=== PATIENT | female | born 1935 | race Caucasian/White ===

== ENCOUNTER 2016-04-08 12:44 | Outpatient (CLI) | payer MEDICARE, BC, OTHER | END 2016-04-08 12:45 | disposition home or self-care (01) | DX: I48.91 Unspecified atrial fibrillation (principal); Z79.01 Long term (current) use of anticoagulants ==

== ENCOUNTER 2016-04-16 08:00 | Outpatient (CLI) | payer MEDICARE, BC, OTHER | END 2016-04-16 08:01 | disposition home or self-care (01) | DX: R19.5 Other fecal abnormalities (principal) ==

== ENCOUNTER 2016-04-28 15:20 | Outpatient (CLI) | payer MEDICARE, BC, OTHER | END 2016-04-28 15:21 | disposition home or self-care (01) | DX: I10 Essential (primary) hypertension (principal); D50.9 Iron deficiency anemia, unspecified ==

== ENCOUNTER 2016-05-06 13:32 | Outpatient (CLI) | payer MEDICARE, BC, OTHER | END 2016-05-06 13:33 | disposition home or self-care (01) | DX: Z00.8 Encounter for other general examination (principal) ==

== ENCOUNTER 2016-05-07 09:34 | Outpatient (CLI) | payer MEDICARE, BC, OTHER | END 2016-05-07 09:35 | disposition home or self-care (01) | DX: D50.8 Other iron deficiency anemias (principal) ==

== ENCOUNTER 2016-06-04 10:00 | Outpatient (CLI) | payer MEDICARE, BC, OTHER | END 2016-06-04 10:01 | disposition home or self-care (01) | DX: I48.91 Unspecified atrial fibrillation (principal); Z79.01 Long term (current) use of anticoagulants ==

== ENCOUNTER 2016-06-08 10:35 | Outpatient (CLI) | payer MEDICARE, BC, OTHER | END 2016-06-08 10:36 | disposition home or self-care (01) | DX: Z12.31 Encounter for screening mammogram for malignant neoplasm of breast (principal); Z85.3 Personal history of malignant neoplasm of breast; Z90.12 Acquired absence of left breast and nipple ==

== ENCOUNTER 2016-07-01 10:23 | Outpatient (CLI) | payer MEDICARE, BC, OTHER | END 2016-07-01 10:24 | disposition home or self-care (01) | DX: I48.91 Unspecified atrial fibrillation (principal); Z79.01 Long term (current) use of anticoagulants ==

== ENCOUNTER 2016-07-29 14:18 | Outpatient (CLI) | payer MEDICARE, BC, OTHER | END 2016-07-29 23:59 | DX: I48.91 Unspecified atrial fibrillation (principal); Z79.01 Long term (current) use of anticoagulants ==

== ENCOUNTER 2016-08-20 07:26 | Outpatient (CLI) | payer MEDICARE, BC, OTHER ==
[2016-08-20 12:01] LABS: BASOPHILS % (AUTO) 0.8 %; EOSINOPHILS # (AUTO) 0.1 10^3/uL (0.0-0.7); HCT - HEMATOCRIT 41.8 % (37.0-47.0); HGB - HEMOGLOBIN 14.1 g/dL (12.0-16.0); LYMPHOCYTES # (AUTO) 1.7 10^3/uL (1.5-3.5); LYMPHOCYTES % (AUTO) 37.3 %; MEAN CORPUSCULAR HGB CONC 33.7 g/dL (32.0-36.0); MEAN PLATELET VOLUME 12.7 fL (7.9-10.8); MONOCYTES # (AUTO) 0.4 10^3/uL (0.0-1.0); NEUTROPHILS # (AUTO) 2.2 10^3/uL (1.5-6.6); NEUTROPHILS % (AUTO) 49.9 %; NUCLEATED RED BLOOD CELLS AUTO 0.1 /100WBC; RED BLOOD COUNT 4.55 10^6/uL (4.20-5.40); UNCORRECTED WHITE BLOOD COUNT 4.5 x10^3/uL; WHITE BLOOD COUNT 4.5 x10^3/uL (4.8-10.8)
[2016-08-20 12:17] LABS: ALBUMIN/GLOBULIN RATIO 1.4 (1.0-2.2); BUN - BLOOD UREA NITROGEN 20 mg/dL (6-20); CALCIUM 8.8 mg/dL (8.5-10.3); CARBON DIOXIDE - CO2 29 mmol/L (21-32); CHLORIDE 106 mmol/L (101-111); CHOL/HDL RATIO 2.6 (<4.4); CHOLESTEROL 142 mg/dL; CREATININE 0.8 mg/dL (0.4-1.0); GFR - MDRD 69 (>89); GLUCOSE 97 mg/dL (70-100); HDL CHOLESTEROL 54 mg/dL; LDL/HDL RATIO 1.2 (<4.4); POTASSIUM 3.7 mmol/L (3.5-5.0); SODIUM 141 mmol/L (135-145); TOTAL PROTEIN 6.8 g/dL (6.7-8.2); TRIGLYCERIDES 107 mg/dL; VLDL CHOLESTEROL 21 mg/dL
[2016-08-20 12:27] LABS: PLATELET MORPHOLOGY RARE GIANT PLATELETS (NORMAL)
== END 2016-08-20 07:27 | disposition home or self-care (01) ==
LOC: LAB.F 07:26
PROVIDERS: ATTEND Internal Medicine
DX: E78.2 Mixed hyperlipidemia (principal); I48.91 Unspecified atrial fibrillation; Z79.899 Other long term (current) drug therapy
CPT/HCPCS: 36415; 80053; 80061; 84443; 85025

== ENCOUNTER 2016-08-26 13:10 | Outpatient (CLI) | payer MEDICARE, BC, OTHER | END 2016-08-26 13:11 | disposition home or self-care (01) | LOC: LAB.F 13:10 | PROVIDERS: ATTEND Internal Medicine | DX: I48.91 Unspecified atrial fibrillation (principal) | CPT/HCPCS: 85610 ==

== ENCOUNTER 2016-09-24 09:00 | Outpatient (CLI) | payer MEDICARE, BC, OTHER | END 2016-09-24 09:01 | disposition home or self-care (01) | LOC: LAB.R 09:00 | PROVIDERS: ATTEND Internal Medicine | DX: N30.90 Cystitis, unspecified without hematuria (principal) | CPT/HCPCS: 87086 ==

== ENCOUNTER 2016-09-27 13:59 | Outpatient (CLI) | payer MEDICARE, BC, OTHER | END 2016-09-27 14:00 | disposition home or self-care (01) | LOC: LAB.F 13:59 | PROVIDERS: ATTEND Internal Medicine | DX: I48.91 Unspecified atrial fibrillation (principal) | CPT/HCPCS: 85610 ==

== ENCOUNTER 2016-10-25 13:35 | Outpatient (CLI) | payer MEDICARE, BC, OTHER | END 2016-10-25 13:36 | disposition home or self-care (01) | LOC: LAB.F 13:35 | PROVIDERS: ATTEND Internal Medicine | DX: I48.91 Unspecified atrial fibrillation (principal) | CPT/HCPCS: 85610 ==

== ENCOUNTER 2016-11-22 14:17 | Outpatient (CLI) | payer MEDICARE, BC, OTHER | END 2016-11-22 14:18 | disposition home or self-care (01) | LOC: LAB.F 14:17 | PROVIDERS: ATTEND Internal Medicine | DX: I48.91 Unspecified atrial fibrillation (principal) | CPT/HCPCS: 85610 ==

== ENCOUNTER 2016-12-22 13:13 | Outpatient (CLI) | payer MEDICARE, BC, OTHER | END 2016-12-22 13:14 | disposition home or self-care (01) | LOC: LAB.F 13:13 | PROVIDERS: ATTEND Internal Medicine | DX: I48.91 Unspecified atrial fibrillation (principal); Z79.01 Long term (current) use of anticoagulants | CPT/HCPCS: 85610 ==

== ENCOUNTER 2017-01-19 14:15 | Outpatient (CLI) | payer MEDICARE, BC, OTHER | END 2017-01-19 14:16 | disposition home or self-care (01) | LOC: LAB.F 14:15 | PROVIDERS: ATTEND Internal Medicine | DX: I48.91 Unspecified atrial fibrillation (principal); Z79.01 Long term (current) use of anticoagulants | CPT/HCPCS: 85610 ==

== ENCOUNTER 2017-02-16 13:57 | Outpatient (CLI) | payer MEDICARE, BC, OTHER | END 2017-02-16 13:58 | disposition home or self-care (01) | LOC: LAB.F 13:57 | PROVIDERS: ATTEND Internal Medicine | DX: I48.91 Unspecified atrial fibrillation (principal); Z79.01 Long term (current) use of anticoagulants | CPT/HCPCS: 85610 ==

== ENCOUNTER 2017-03-04 13:35 | Outpatient (CLI) | payer MEDICARE, BC, OTHER ==
[2017-03-04 18:54] LABS: BASOPHILS % (AUTO) 0.3 %; EOSINOPHILS % (AUTO) 0.8 %; HCT - HEMATOCRIT 42.9 % (37.0-47.0); HGB - HEMOGLOBIN 14.3 g/dL (12.0-16.0); LYMPHOCYTES # (AUTO) 1.6 10^3/uL (1.5-3.5); LYMPHOCYTES % (AUTO) 28.4 %; MEAN CORPUSCULAR HEMOGLOBIN 31.1 pg (27.0-31.0); MEAN CORPUSCULAR HGB CONC 33.2 g/dL (32.0-36.0); MEAN CORPUSCULAR VOLUME 93.5 fL (81.0-99.0); MONOCYTES # (AUTO) 0.4 10^3/uL (0.0-1.0); MONOCYTES % (AUTO) 6.3 %; NEUTROPHILS # (AUTO) 3.7 10^3/uL (1.5-6.6); NEUTROPHILS % (AUTO) 64.2 %; NUCLEATED RED BLOOD CELLS AUTO 0.1 /100WBC; RED BLOOD COUNT 4.59 10^6/uL (4.20-5.40); RED CELL DISTRIBUTION WIDTH 13.2 % (12.0-15.0); UNCORRECTED WHITE BLOOD COUNT 5.7 x10^3/uL; WHITE BLOOD COUNT 5.7 x10^3/uL (4.8-10.8)
[2017-03-04 19:31] LABS: PLATELET ESTIMATE, MANUAL NORMAL (130-450,000) (NORMAL); PLATELET MORPHOLOGY RARE GIANT PLATELETS (NORMAL)
[2017-03-04 20:27] LABS: ALBUMIN/GLOBULIN RATIO 1.3 (1.0-2.2); BILIRUBIN,TOTAL 0.9 mg/dL (0.2-1.0); CALCIUM 8.6 mg/dL (8.5-10.3); CREATININE 0.8 mg/dL (0.4-1.0); POTASSIUM 4.1 mmol/L (3.5-5.0); TOTAL PROTEIN 7.2 g/dL (6.7-8.2)
== END 2017-03-04 13:36 | disposition home or self-care (01) ==
LOC: LAB.F 13:35
PROVIDERS: ATTEND Internal Medicine
DX: R53.81 Other malaise (principal)
CPT/HCPCS: 36415; 80053; 85025

== ENCOUNTER 2017-03-16 13:59 | Outpatient (CLI) | payer MEDICARE, BC, OTHER | END 2017-03-16 14:00 | disposition home or self-care (01) | LOC: LAB.F 13:59 | PROVIDERS: ATTEND Internal Medicine | DX: I48.91 Unspecified atrial fibrillation (principal); Z79.01 Long term (current) use of anticoagulants | CPT/HCPCS: 85610 ==

== ENCOUNTER 2017-04-20 09:01 | Observation (INO) | payer MEDICARE, BC, OTHER ==
[2017-04-20 09:54] LABS: BASOPHILS # (AUTO) 0.1 10^3/uL (0.0-0.1); BASOPHILS % (AUTO) 0.6 %; EOSINOPHILS # (AUTO) 0.1 10^3/uL (0.0-0.7); EOSINOPHILS % (AUTO) 0.7 %; HGB - HEMOGLOBIN 12.4 g/dL (12.0-16.0); LYMPHOCYTES # (AUTO) 1.4 10^3/uL (1.5-3.5); LYMPHOCYTES % (AUTO) 16.8 %; MEAN CORPUSCULAR HEMOGLOBIN 30.8 pg (27.0-31.0); MEAN CORPUSCULAR HGB CONC 32.6 g/dL (32.0-36.0); MEAN CORPUSCULAR VOLUME 94.6 fL (81.0-99.0); MEAN PLATELET VOLUME 10.4 fL (7.9-10.8); MONOCYTES # (AUTO) 0.5 10^3/uL (0.0-1.0); MONOCYTES % (AUTO) 6.1 %; NEUTROPHILS # (AUTO) 6.3 10^3/uL (1.5-6.6); NEUTROPHILS % (AUTO) 75.8 %; PLT - PLATELET COUNT 258 10^3/uL (130-450); RED BLOOD COUNT 4.03 10^6/uL (4.20-5.40); RED CELL DISTRIBUTION WIDTH 14.2 % (12.0-15.0); WHITE BLOOD COUNT 8.4 x10^3/uL (4.8-10.8)
[2017-04-20 10:09] LABS: PT - PROTHROMBIN TIME 57.8 secs (9.9-12.6)
[2017-04-20 10:10] LABS: INR 5.5 (0.8-1.2)
[2017-04-20 10:11] LABS: ALBUMIN 3.8 g/dL (3.2-5.5); ALBUMIN/GLOBULIN RATIO 1.1 (1.0-2.2); BILIRUBIN,TOTAL 0.5 mg/dL (0.2-1.0); CALCIUM 8.7 mg/dL (8.5-10.3); CREATININE 0.8 mg/dL (0.4-1.0); TOTAL PROTEIN 7.2 g/dL (6.7-8.2)
[2017-04-20 10:16] LABS: BILIRUBIN,URINE NEGATIVE (NEGATIVE); GLUCOSE, URINE (UA) NEGATIVE (NEGATIVE); KETONES,URINE (UA) NEGATIVE (NEGATIVE); LEUKOCYTE ESTERASE, URINE NEGATIVE (NEGATIVE); NITRITE,URINE NEGATIVE (NEGATIVE); OCCULT BLOOD,URINE MODERATE (NEGATIVE); PROTEIN,URINE NEGATIVE (NEGATIVE); UROBILINOGEN,URINE 0.2 (NORMAL) E.U./dL (NORMAL)
[2017-04-20 10:19] LABS: CLARITY,URINE CLEAR (CLEAR)
[2017-04-20] MEDS ORDERED: PROTHROMBIN COMPLEX CONC 500 UNIT VIAL IVP STA (10:24)
[2017-04-20] MEDS ORDERED: PHYTONADIONE 10 MG/ML AMP IVP STA (10:24)
[2017-04-20] MEDS ORDERED: PANTOPRAZOLE 40 MG VIAL IVP STA (10:27)
--- NOTE | 2017-04-20 10:27 | ED Physician Documentation ---
PD HPI GI BLEED - Stated complaint Stated Complaint: FEMALE - Chief complaint Chief Complaint: General - History obtained from History obtained from: Patient, Family - History of Present Illness Timing - onset: How many days ago (3) Timing - duration: Days (3) Timing - details: Gradual onset, Still present, Waxing and waning Associated symptoms: BRBPR, Black/tarry stool. No: Vomiting Contributing factors: Anticoagulated Similar symptoms before: Has not had sx before Recently seen: Not recently seen - Additional information Additional information: 81-year-old female on Coumadin for atrial fibrillation has developed dark tarry stools about 3 days ago and she is subsequently developed bright red blood per rectum at about 2:30 in the morning this morning. She has had stable INR for the past year. She has had an upper respiratory tract infection and has not been on any specific new medications. She feels the URI is now resolved. Review of Systems Constitutional: denies: Fever Eyes: denies: Decreased vision Ears: denies: Ear pain Nose: reports: Rhinorrhea / runny nose, Congestion Throat: denies: Sore throat Cardiac: denies: Chest pain / pressure, Palpitations Respiratory: reports: Cough. denies: Dyspnea GI: reports: Nausea, Bloody / black stool. 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 - Present Medications Home Medications: Ambulatory Orders Medication Instructions Recorded Confirmed Calcium Carbonate [Calcium] 1,200 mg PO DAILY 05/26/13 04/20/17 Cholecalciferol (Vitamin D3) 1,000 unit PO DAILY 05/26/13 04/20/17 [Vitamin D] Clopidogrel [Plavix] 75 mg PO ONCE 05/26/13 04/20/17 LORazepam [Ativan] 0.5 mg PO Q6H PRN 05/26/13 04/20/17 Losartan [Cozaar] 50 mg PO BID 05/26/13 04/20/17 Metoprolol Tartrate 50 mg PO BID 05/26/13 04/20/17 Pantoprazole Sodium [Protonix] 40 mg PO HS 05/26/13 04/20/17 Betaxolol 0.25% Ophth Drops 1 drops OPTH BID 07/05/13 04/20/17 [Betoptic S] Atorvastatin [Lipitor] 10 mg PO DAILY 08/27/15 04/20/17 Furosemide 10 mg PO DAILY 08/27/15 04/20/17 Warfarin [Coumadin] 5 mg PO 1400 08/27/15 04/20/17 Amlodipine Besylate [Norvasc] 2.5 mg PO DAILY 04/20/17 04/20/17 - Allergies Allergies/Adverse Reactions: Allergies Allergy/AdvReac Type Severity Reaction Status Date / Time adhesive Allergy Mild Rash Verified 11/18/15 14:19 amoxicillin [Amoxicillin] Allergy Unknown Unknown Verified 11/18/15 14:19 clindamycin Allergy Unknown Verified 11/19/15 11:16 codeine Allergy Unknown Verified 11/19/15 11:17 tetracycline Allergy Unknown Verified 11/19/15 11:16 - Social History Does the pt smoke?: No Smoking Status: Never smoker Does the pt have substance abuse?: No - POLST Patient has POLST: No PD ED PE NORMAL - Vitals Vital signs reviewed: Yes (hypertensive ) - General General: Alert and oriented X 3, No acute distress, Well developed/nourished - HEENT HEENT: Atraumatic, EOMI - Neck Neck: Supple, no meningeal sign - Cardiac Cardiac: Other (irregularly irregular with 2/6 holosystolic murmer at LSB) - Respiratory Respiratory: No respiratory distress, Clear bilaterally - Abdomen Abdomen: Soft, Non tender - Back Back: No CVA TTP, No spinal TTP - Derm Derm: Normal color, Warm and dry, No rash - Extremities Extremities: No deformity, No edema - Neuro Neuro: No motor deficit, No sensory deficit Eye Opening: Spontaneous Motor: Obeys Commands Verbal: Oriented GCS Score: 15 - Psych Psych: Normal mood, Normal affect Results - Vitals Vitals: Vital Signs - 24 hr 04/20/17 09:07 Heart Rate 82 Respiratory 14 Rate Blood Pressure 155/96 H O2 Saturation 96 Oxygen O2 Source Room air - Labs Labs: Laboratory Tests 04/20/17 04/20/17 04/20/17 09:40 09:40 09:40 WBC 8.4 RBC 4.03 L Hgb 12.4 Hct 38.1 MCV 94.6 MCH 30.8 MCHC 32.6 RDW 14.2 Plt Count 258 MPV 10.4 Neut # 6.3 Lymph # 1.4 L Dixie # 0.5 Eos # 0.1 Baso # 0.1 Absolute Nucleated RBC 0.00 Nucleated RBC % 0.0 PT 57.8 H INR 5.5 H* Sodium 137 Potassium 4.1 Chloride 100 L Carbon Dioxide 26 Anion Gap 11.0 BUN 26 H Creatinine 0.8 Estimated GFR (MDRD) 69 L Glucose 110 H Calcium 8.7 Total Bilirubin 0.5 AST 26 ALT 18 Alkaline Phosphatase 54 Troponin I Total Protein 7.2 Albumin 3.8 Globulin 3.4 Albumin/Globulin Ratio 1.1 Lipase 25 Urine Color Urine Clarity Urine pH Ur Specific [place] Urine Protein Urine Glucose (UA) Urine Ketones Urine Occult Blood Urine Nitrite Urine Bilirubin Urine Urobilinogen Ur Leukocyte Esterase Ur Microscopic Review Urine Culture Comments 04/20/17 04/20/17 09:40 09:45 WBC RBC Hgb Hct MCV MCH MCHC RDW Plt Count MPV Neut # Lymph # Dixie # Eos # Baso # Absolute Nucleated RBC Nucleated RBC % PT INR Sodium Potassium Chloride Carbon Dioxide Anion Gap BUN Creatinine Estimated GFR (MDRD) Glucose Calcium Total Bilirubin AST ALT Alkaline Phosphatase Troponin I < 0.04 Total Protein Albumin Globulin Albumin/Globulin Ratio Lipase Urine Color LIGHT YELLOW Urine Clarity CLEAR Urine pH 6.0 Ur Specific [place] 1.010 Urine Protein NEGATIVE Urine Glucose (UA) NEGATIVE Urine Ketones NEGATIVE Urine Occult Blood MODERATE H Urine Nitrite NEGATIVE Urine Bilirubin NEGATIVE Urine Urobilinogen 0.2 (NORMAL) Ur Leukocyte Esterase NEGATIVE Ur Microscopic Review INDICATED Urine Culture Comments Not Reportable PD MEDICAL DECISION MAKING - ED course Complexity details: reviewed old records, reviewed results, re-evaluated patient , considered differential, d/w patient, d/w family ED course: 81-year-old female with history of atrial fibrillation on Coumadin has developed GI bleeding. She is previously had a history of ulcer she has been on her ulcer medicine for a month and stopped that about 2 weeks ago she has developed bright red blood per rectum now after dark stool and her initial hematocrit is normal. She does have an elevated INR with acute bleeding and her Coumadin is reversed with vitamin K and Kcentra. Departure - Departure Disposition: ED Place in Observation Clinical Impression: Supratherapeutic INR GI bleeding Qualifiers: GI bleed type/associated pathology: melena Qualified Code(s): K92.1 - Melena Condition: Serious
[2017-04-20 10:32] LABS: BACTERIA,URINE Rare /HPF (None Seen); RBC,URINE 0-5 /HPF (0-5); SQUAMOUS EPITHELIAL CELL,UR RARE Squamous (<= Few)
[2017-04-20] MEDS ORDERED: SODIUM CHLORIDE FLUSH 0.9% 10 ML SYRINGE IVP PRN (12:41)
[2017-04-20] MEDS ORDERED: SODIUM CHLORIDE 0.9% 1,000 ML IV SCH (13:00)
--- NOTE | 2017-04-20 13:03 | HISTORY & PHYSICAL EXAMINATION ---
Chief Complaint - Chief Complaint Chief Complaint: BRBPR, fatigue History of Present Illness - Admitted From Admitted From:: ED - History Obtained From Records Reviewed: yes History obtained from: chart review, patient Exam Limitations: none - History of Present Illness HPI Comment/Other: Millie Mosquera is a well-appearing 81-year old white female with a past medical history of hypertension, hyperlipidemia, atrial fibrillation, TIA, GERD , urinary incontinence, chronic vision loss, anxiety , glaucoma, essential tremor, AMARA pneumonia, depression, and osteoporosis. Patient admits to recent "dark stools", similar to past events, but this time notes bright red blood per rectum. This began in the early AM on Tuesday (48 hours ago) @ 2:30am, 3:30am and 6am and were noted to be large in amount. She notes a cramping sensation during these times that began at her navel and traveled toward her groin area. This was quiet alarming to her, so she called her PCP, Dr. Weiss, and was later brought to the ED for further evaluation. Once in the ED her INR was noted to be elevated at 5.5, so Kcentra IV was given. Patient is on coumadin and Plavix for chronic atrial fibrillation. She denies chest pain, N/V, a new cough or changes with her urine. She admits to persistent fatigue that has now become debilitating, poor appetite, recent URI-resolved now, and a change in her bowel pattern that she contributes to her loss of appetite. She will be admitted to observation for a general surgery consult, telemetry monitoring, and GI work up. Upon exam, patient requests that I speak with Dr. Weiss regarding the plan of care. 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 Living arrangement: At home Living Situation: With spouse/s.o. - Substance History Use: Uses substance without health or social issues: NONE Abuse: Recurrent use of substance despite neg consequences: NONE Dependence: Experiences withdrawal or developed tolerances: NONE Tobacco Details: Cigarettes (smoking history-quit in 1974) - POLST Patient has POLST: No POLST Status: DNR (Ok to shock or give meds, NO compressions, NO intubation.) Meds/Allgy - Home Medications Home Medications: Ambulatory Orders Medication Instructions Recorded Confirmed Calcium Carbonate [Calcium] 1,200 mg PO DAILY 05/26/13 04/20/17 Cholecalciferol (Vitamin D3) 1,000 unit PO DAILY 05/26/13 04/20/17 [Vitamin D] Clopidogrel [Plavix] 75 mg PO DAILY 05/26/13 04/20/17 LORazepam [Ativan] 0.25 - 0.5 mg PO DAILY PRN 05/26/13 04/20/17 Losartan [Cozaar] 50 mg PO BID 05/26/13 04/20/17 Metoprolol Tartrate 75 mg PO BID 05/26/13 04/20/17 Pantoprazole Sodium [Protonix] 40 mg PO QDAC 05/26/13 04/20/17 Atorvastatin [Lipitor] 10 mg PO QPM 08/27/15 04/20/17 Warfarin [Coumadin] 5 mg PO MOFR@1400 08/27/15 04/20/17 Amlodipine Besylate [Norvasc] 2.5 mg PO QPM 04/20/17 04/20/17 Betaxolol 0.25% Ophth Drops 1 drops EACHEYE BID 04/20/17 04/20/17 [Betoptic S 0.25% Ophth Drops] Ferrous Gluconate [Fergon] 270 mg PO DAILY 04/20/17 04/20/17 Furosemide 5 mg PO DAILY 04/20/17 04/20/17 Sucralfate [Carafate] 1 gm PO ACHS 04/20/17 04/20/17 Warfarin [Coumadin] 2.5 mg PO SUTUWETHSA@1400 04/20/17 04/20/17 - Allergies Allergies/Adverse Reactions: Allergies Allergy/AdvReac Type Severity Reaction Status Date / Time adhesive Allergy Mild Rash Verified 11/18/15 14:19 amoxicillin [Amoxicillin] Allergy Unknown Unknown Verified 11/18/15 14:19 clindamycin Allergy Unknown Verified 11/19/15 11:16 codeine Allergy Unknown Verified 11/19/15 11:17 tetracycline Allergy Unknown Verified 11/19/15 11:16 Review of Systems - Constitutional Constitutional: reports: Fatigue, Weakness, Poor appetite, Weight loss (3-5 lbs in the past week.) - Eyes Eyes: reports: Blurred vision, Vision loss (increasing difficult to read music notes,), Corrective lenses - Cardiovascular Cariovascular: reports: Irregular heart rate, Lightheadedness, Exertional dyspnea, Decr. exercise tolerance (typically walks everyday, but has not been able to lately.) - Gastrointestinal Gastrointestinal: reports: Abdominal pain, Abdominal distention, Change in bowel habits, Rectal bleeding, Bloody stools, Nausea, Reflux/heartburn, Poor appetite - Genitourinary Genitourinary: reports: Dysuria, Frequency, Incontinence - Musculoskeletal Musculoskeletal: reports: Muscle weakness - Integumentary Integumentary: reports: Dryness - Neurological Neurological: reports: General weakness, Dizziness - Psychiatric Psychiatric: reports: Depression, Anxiety - All Other Systems All Other Systems: reports: Reviewed and negative - Other Findings Other Findings: Recent URI; duration of 10 days, no fever/chills. Mild non-productive cough. Did not seek medical attention for this and was self limiting. Exam - Vital Signs Reviewed Vital Signs: Yes Vital Signs: Vital Signs x48h Temp Pulse Resp BP Pulse Ox 04/20/17 12:48 92 12 190/82 H 97 04/20/17 10:41 36.6 C 87 18 145/79 H 96 04/20/17 09:07 82 14 155/96 H 96 - Physical Exam General Appearance: positive: No acute distress, Alert, Anxious (underlying disorder.) Eyes Bilateral: positive: Normal inspection, PERRL ENT: positive: ENT inspection nml, Pharynx nml, Dry mucous membranes Neck: positive: Nml inspection, Thyroid nml, No JVD, Stiff neck Respiratory: positive: Chest non-tender, No respiratory distress, Breath sounds nml Cardiovascular: positive: Irregularly irregular, Systolic murmur, Diastolic murmur, Decreased pulse(s) Peripheral Pulses: positive: 2+ Abdomen: positive: Non-tender, No organomegaly, Nml bowel sounds, No distention , Other (rounded, soft.) Rectal: positive: Bloody stool Back: positive: Nml inspection (moles, not suspicious;) Skin: positive: No rash, Warm, Pallor Extremities: positive: Non-tender, Full ROM, Nml appearance, No pedal edema Neurologic/Psychiatric: positive: Oriented x3, CN's nml (2-12), Motor nml, Sensation nml, Depressed mood/affect Reflexes: Bicep (R): 2+, Bicep (L): 2+ Conclusion/Plan - Problem List (1) GI bleeding Conclusion/Plan: Patient admits to bright red blood per rectum. This began in the early AM on Tuesday (48 hours ago) @ 2:30am, 3:30am and 6am and were noted to be large in amount. She notes a cramping sensation during these times that began at her navel and traveled toward her groin area. Plan: Dr. Michael Barboza, general surgery consulted. RBC nuclear scan ordered. Qualifiers: GI bleed type/associated pathology: diverticulosis Qualified Code(s): K57.91 - Diverticulosis of intestine, part unspecified, without perforation or abscess with bleeding (2) Supratherapeutic INR Conclusion/Plan: Patient has an elevated INR of 5.5 on admit. Last known value mid-March was 2.0. Plan: Kcentra administered in ED, and coumadin/Plavix now on hold due to GI bleeding. (3) Anxiety and depression Conclusion/Plan: Patient has a long standing history of this and is generally well-managed using medications. Plan: Continue out patient treatment. (4) [facility] current use of anticoagulant therapy Conclusion/Plan: Patient is on long-term Coumadin as per anticoagulation clinic, Dr. Weiss. Primarily prescribed due to chronic atrial fibrillation. Plan: Coumadin and Plavix now on hold due to GI bleeding. We will continue to monitor INR, labs. (5) Profound fatigue Conclusion/Plan: Patient has been fatigued for several months, that has progressed and is noted to be "debilitating". Patient's last cardiac echocardiogram was ~3-4 years ago. Upon exam a loud holosystolic mitral murmur can be heard. Plan: Echo ordered and pending. Will check labs; B12, TSH, etc. (6) Chronic atrial fibrillation Conclusion/Plan: Patient has not been in sinus rhythm for some time. Currently in a-fib in the 80's. Patient admits to occasional palpitations, SOB, and recent fatigue, but nothing new lately. Plan: Continue medications for rate control and watch for signs of intolerance. Telemetry, echo pending. Code status: DNR. Ok to attempt one set of shocks, IV rescue meds, but NO compressions, NO intubation. DVT prophylaxis: SCDs only, anticoagulation is contraindicated. - Lab Results Lab results reviewed: Yes Nathan Bones: 04/20/17 09:40 04/20/17 09:40 - EKG Results EKG Interpreted Independently: Yes Core Measures - Anticipated LOS I expect patient to be DC'd or transferred within 96 hours.: Yes - DVT/VTE - Prophylaxis VTE/DVT Device ordered at admit?: Yes VTE/DVT Prophylaxis med ordered at admit?: No Not Ordered - Medical Reason: Contraindicated (GI bleed) - Stroke - Rehab Assessment Rehab services assessment to be ordered?: No Not Ordered - Medical Reason: Contraindicated (patient ambulatory, no recent falls.) - AMI - Statin at Admit Aspirin Prescribed on Admit: No Not Ordered - Medical Reason: Contraindicated
[2017-04-20] MEDS ORDERED: LOSARTAN 50 MG TABLET PO SCH (14:00)
[2017-04-20] MEDS ORDERED: METOPROLOL TARTRATE 50 MG TABLET PO SCH (14:00)
[2017-04-20] MEDS: SODIUM CHLORIDE FLUSH 0.9% 10 ML SYRINGE IVP SCH ×2 (14:47→21:02)
[2017-04-20] MEDS: LORazepam 0.5 MG TABLET PO PRN (14:48)
--- NOTE | 2017-04-20 15:50 | ADVANCE CARE PLANNING NOTE ---
Advance Care Planning - Date/Time Date: 04/20/17 Time: 15:47 - Parties in attendance Parties in attendance: Patient, daughter, and myself. - Decisional capacity Decisional capacity of: intact, without deficits. - Subjective/Patient's story Subjective/Patient's story: Patient states, "I do not want to be kept alive artifically. I am 81-years old and have lived a full life". 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 She is happily to [place], . She lives independently and can complete all ADLs on a daily basis. Recently her fatigue has become more profound. - Goals of Care Goals of care determinations: Make the most out of life. Try to narrow down the cause of fatigue. - Plan Plan: GI work up, general surgery consult. Mini-cardiac work up including echocardiogram, telemetry monitoring and medication review. Labs, monitor blood loss. - Code Status Code Status: Do Not Attempt Resuscitation - Time Spent on Advance Care Planning Time spent on advance care plannin
--- NOTE | 2017-04-20 17:13 | Nuclear Medicine Report ---
EXAM: GASTROINTESTINAL BLEED LOCALIZATION STUDY WITH VASCULAR FLOW STUDY EXAM DATE: 04/20/2017 05:04 PM. CLINICAL HISTORY: Bright red blood per rectum COMPARISON: None. TECHNIQUE: The patient's own red blood cells were labeled with 27.8 mCi Tc-99m pertechnetate accordin g to department protocol. Following the administration of the radiolabeled red blood cells, dynamic f low images were acquired for the initial 2 minutes. Next, dynamic gamma camera imaging for a total of minutes post injection was acquired from the anterior projection. Postvoid images were also acquire d. FINDINGS: No foci of progressive antegrade or retrograde radiotracer activity to suggest etiology of GI bleed. Physiological uptake in vasculature, spleen, liver, and bladder. IMPRESSION: Normal study. No scintigraphic evidence of active GI bleed. [facility] Referring Provider Line: [phone] SITE ID: [id number]
[2017-04-20] MEDS ORDERED: ATORVASTATIN 10 MG TABLET PO SCH (21:00)
[2017-04-20] MEDS: LOSARTAN 50 MG TABLET PO SCH (21:01)
[2017-04-20] MEDS: METOPROLOL TARTRATE 50 MG TABLET PO SCH (21:02)
[2017-04-21] MEDS: SODIUM CHLORIDE FLUSH 0.9% 10 ML SYRINGE IVP SCH (05:52)
[2017-04-21] MEDS: LORazepam 0.5 MG TABLET PO PRN (05:52)
[2017-04-21] MEDS ORDERED: SUCRALFATE 1 GM/10 ML UDC PO SCH (08:00)
[2017-04-21 08:20] VITALS: BP 148/78
[2017-04-21 08:39] LABS: BASOPHILS % (AUTO) 0.5 %; EOSINOPHILS # (AUTO) 0.1 10^3/uL (0.0-0.7); EOSINOPHILS % (AUTO) 0.9 %; HGB - HEMOGLOBIN 11.9 g/dL (12.0-16.0); LYMPHOCYTES # (AUTO) 1.6 10^3/uL (1.5-3.5); LYMPHOCYTES % (AUTO) 23.4 %; MEAN CORPUSCULAR HEMOGLOBIN 30.4 pg (27.0-31.0); MEAN CORPUSCULAR HGB CONC 32.8 g/dL (32.0-36.0); MEAN CORPUSCULAR VOLUME 92.8 fL (81.0-99.0); MEAN PLATELET VOLUME 10.5 fL (7.9-10.8); MONOCYTES # (AUTO) 0.5 10^3/uL (0.0-1.0); MONOCYTES % (AUTO) 6.9 %; NEUTROPHILS # (AUTO) 4.8 10^3/uL (1.5-6.6); NEUTROPHILS % (AUTO) 68.3 %; PLT - PLATELET COUNT 263 10^3/uL (130-450); RED CELL DISTRIBUTION WIDTH 13.9 % (12.0-15.0)
[2017-04-21 08:44] LABS: PT - PROTHROMBIN TIME 11.3 secs (9.9-12.6)
[2017-04-21 08:53] LABS: ALBUMIN 3.6 g/dL (3.2-5.5); ALBUMIN/GLOBULIN RATIO 1.1 (1.0-2.2); CALCIUM 8.2 mg/dL (8.5-10.3); CREATININE 0.7 mg/dL (0.4-1.0); MAGNESIUM 2.2 mg/dL (1.7-2.8); PHOSPHORUS 2.4 mg/dL (2.5-4.6); TOTAL PROTEIN 6.8 g/dL (6.7-8.2)
[2017-04-21] MEDS ORDERED: FUROSEMIDE 20 MG TABLET PO SCH (09:00)
[2017-04-21] MEDS ORDERED: POLYETHYLENE GLYCOL 3350 17 GM PACKET PO SCH (09:00)
[2017-04-21] MEDS ORDERED: BETAXOLOL 0.25% OPHTH DROPS EACHEYE SCH (09:00)
--- NOTE | 2017-04-21 09:04 | DISCHARGE SUMMARY ---
Discharge Summary Admit Date: 04/20/17 Discharge Date: 04/21/17 Discharging Provider: BRIANNA Collado Primary Care Provider: Dr. 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 Diverticula of colon (K57.30) chronic, stable. Anemia due to blood loss, acute (D62) Chronic, stable. GI bleeding (K92.2) resolved with treatment of supratherapeutic INR. Supratherapeutic INR (R79.1) Resolved, advised re-check and Lovenox injections to be used as a bridge. Anxiety and depression (F41.8) chronic, stable. assisted current use of anticoagulant therapy (Z79.01) chronic, stable. Profound fatigue (R53.83) needs further evaluation. Chronic atrial fibrillation (I48.2) chronic, stable. - HPI History of Present Illness: Millie Mosquera is a well-appearing 81-year old white female with a past medical history of hypertension, hyperlipidemia, atrial fibrillation, TIA, GERD , urinary incontinence, chronic vision loss, anxiety , glaucoma, essential tremor, AMARA pneumonia, depression, and osteoporosis. Patient admits to recent "dark stools", similar to past events, but this time notes bright red blood per rectum. This began in the early AM on Tuesday (48 hours ago) @ 2:30am, 3:30am and 6am and were noted to be large in amount. She notes a cramping sensation during these times that began at her navel and traveled toward her groin area. This was quiet alarming to her, so she called her PCP, Dr. Weiss, and was later brought to the ED for further evaluation. Once in the ED her INR was noted to be elevated at 5.5, so Kcentra IV was given. Patient is on coumadin and Plavix for chronic atrial fibrillation. She denies chest pain, N/V, a new cough or changes with her urine. She admits to persistent fatigue that has now become debilitating, poor appetite, recent URI-resolved now, and a change in her bowel pattern that she contributes to her loss of appetite. She will be admitted to observation for a general surgery consult, telemetry monitoring, and GI work up. Upon exam, patient requests that I speak with Dr. Weiss regarding the plan of care. - ALLERGIES Allergies/Adverse Reactions: Allergies Allergy/AdvReac Type Severity Reaction Status Date / Time adhesive Allergy Mild Rash Verified 11/18/15 14:19 amoxicillin [Amoxicillin] Allergy Unknown Unknown Verified 11/18/15 14:19 clindamycin Allergy Unknown Verified 11/19/15 11:16 codeine Allergy Unknown Verified 11/19/15 11:17 tetracycline Allergy Unknown Verified 11/19/15 11:16 - MEDICATIONS Home Medications: Ambulatory Orders Medication Instructions Recorded Confirmed Calcium Carbonate [Calcium] 1,200 mg PO DAILY 05/26/13 04/20/17 Cholecalciferol (Vitamin D3) 1,000 unit PO DAILY 05/26/13 04/20/17 [Vitamin D3] Clopidogrel [Plavix] 75 mg PO DAILY 05/26/13 04/20/17 LORazepam [Ativan] 0.25 - 0.5 mg PO DAILY PRN 05/26/13 04/20/17 Losartan [Cozaar] 50 mg PO BID 05/26/13 04/20/17 Metoprolol Tartrate 75 mg PO BID 05/26/13 04/20/17 Pantoprazole Sodium [Protonix] 40 mg PO QDAC 05/26/13 04/20/17 Atorvastatin [Lipitor] 10 mg PO QPM 08/27/15 04/20/17 Warfarin [Coumadin] 5 mg PO MOFR@1400 08/27/15 04/20/17 Amlodipine Besylate [Norvasc] 2.5 mg PO QPM 04/20/17 04/20/17 Betaxolol 0.25% Ophth Drops 1 drops EACHEYE BID 04/20/17 04/20/17 [Betoptic S 0.25% Ophth Drops] Ferrous Gluconate [Fergon] 270 mg PO DAILY 04/20/17 04/20/17 Furosemide 5 mg PO DAILY 04/20/17 04/20/17 Sucralfate [Carafate] 1 gm PO ACHS 04/20/17 04/20/17 Warfarin [Coumadin] 2.5 mg PO SUTUWETHSA@1400 04/20/17 04/20/17 Enoxaparin [Lovenox] 60 mg SQ BID 4 Days #8 syringe 04/21/17 - PHYSICAL EXAM AT DISCHARGE General Appearance: positive: No acute distress, Alert Eyes Bilateral: positive: Normal inspection, PERRL ENT: positive: ENT inspection nml, Pharynx nml, No signs of dehydration Neck: positive: Nml inspection, Thyroid nml, No JVD, Trachea midline Respiratory: positive: Chest non-tender, No respiratory distress, Breath sounds nml Cardiovascular: positive: Irregularly irregular, Systolic murmur, Decreased pulse(s) Peripheral Pulses: positive: 1+ Abdomen: positive: Non-tender, No organomegaly, Nml bowel sounds, No distention Rectal: positive: Tenderness Back: positive: Nml inspection Skin: positive: No rash, Warm, Dry Extremities: positive: Non-tender, Full ROM, Nml appearance, No pedal edema Neurologic/Psychiatric: positive: Oriented x3, CN's nml (2-12), Motor nml, Sensation nml, Mood/affect nml Reflexes: Bicep (R): 2+, Bicep (L): 2+ - LABS Result Diagrams: 04/21/17 08:00 04/21/17 08:00 - DIAGNOSTIC IMAGING Diagnostic Imaging Results: Final report reviewed Diagnostic Imaging Results Comments: An echocardiogram was completed and it shows normal left ventricular function with an ejection fraction of 65-70%. Both atria are enlarged. No aortic stenosis. Mild pulmonary hypertension with a RVSP at rest of 44mmHg. - FOLLOW UP Follow Up: Your GI bleeding was likely due to your elevated INR value of 5.5. There are several causes of increased INR levels; and they are centered around how warfarin is ingested, absorbed or metabolized. Antibiotics, acetaminophen, NSAIDS and some types of anti-ulcer medications can influence how your warfarin works. Another thought is that you recently had an acute illness and you reported lack of appetite, which may have contributed to the way warfarin was absorbed or metabolized. In the future, if you have any changes in your health, check with Dr. Weiss in regards of more frequent lab draws. I checked some labs directly related to your complaints of fatigue; TSH was normal at 1.78, vitamin B12 normal at 349, and red blood cells a little lower at 11.9/36.2. Please see Dr. Weiss within one week as a follow up this hospital stay. Please visit the clinic on Tuesday April 25, 2017 to check your INR. Please report any further rectal bleeding, and certainly if you are symptomatic with loosing blood, go directly to the ER. Dr. Barboza notes your bleeding to be coming from internal hemorrhoids, diverticulosis. Please take all medications as prescribed including your new Lovenox injections every 12 hours. I gave you enough doses to cover you until Tuesday AM. If you need additional doses, Dr. Weiss will decide. - TIME SPENT Time Spent in Discharge (Minutes): 45
[2017-04-21 09:34] LABS: THYROID STIMULATING HORMONE 1.78 uIU/mL (0.34-5.60)
[2017-04-21] MEDS ORDERED: CLOPIDOGREL 75 MG TABLET PO SCH (10:00)
[2017-04-21] MEDS: METOPROLOL TARTRATE 50 MG TABLET PO SCH (10:20)
[2017-04-21] MEDS: LOSARTAN 50 MG TABLET PO SCH (10:21)
[2017-04-21] MEDS ORDERED: ENOXAPARIN 60 MG/0.6 ML SYRINGE SUBQ SCH (11:00)
[2017-04-21] MEDS ORDERED: amLODIPine 5 MG TABLET PO SCH (21:00)
== END 2017-04-21 11:44 | disposition home or self-care (01) ==
LOC: ED 09:01 → OBS 12:41
PROVIDERS: ADMIT Nurse Practitioner; ATTEND Nurse Practitioner
DX: K64.8 Other hemorrhoids (principal); K57.30 Diverticulosis of large intestine without perforation or abscess without bleeding; D62 Acute posthemorrhagic anemia; K92.2 Gastrointestinal hemorrhage, unspecified; R79.1 Abnormal coagulation profile; F32.9 Major depressive disorder, single episode, unspecified; F41.9 Anxiety disorder, unspecified; Z79.01 Long term (current) use of anticoagulants; Z79.02 Long term (current) use of antithrombotics/antiplatelets; R53.83 Other fatigue; I48.2 Chronic atrial fibrillation; R10.30 Lower abdominal pain, unspecified; R19.4 Change in bowel habit; I10 Essential (primary) hypertension; E78.5 Hyperlipidemia, unspecified; K21.9 Gastro-esophageal reflux disease without esophagitis; R32 Unspecified urinary incontinence; H40.9 Unspecified glaucoma; G25.0 Essential tremor; Z66 Do not resuscitate; Z86.73 Personal history of transient ischemic attack (TIA), and cerebral infarction without residual deficits; Z87.01 Personal history of pneumonia (recurrent); M81.0 Age-related osteoporosis without current pathological fracture; Z85.3 Personal history of malignant neoplasm of breast; Z90.10 Acquired absence of unspecified breast and nipple; Z87.891 Personal history of nicotine dependence
CPT/HCPCS: 36415; 78278; 80053; 81001; 82550; 82607; 83690; 83735; 84100; 84443; 84484; 85025; 85610; 85730; 86850; 86900; 86901; 93306; 96361; 96372; 96374; 96375; 99283; 99285; A9270; A9512; A9538; C9132; G0378; J1650; 81003; 87086

== ENCOUNTER 2017-05-05 08:43 | Outpatient (CLI) | payer MEDICARE, BC, OTHER | END 2017-05-05 08:44 | disposition home or self-care (01) | LOC: LAB.F 08:43 | PROVIDERS: ATTEND Internal Medicine | DX: I48.91 Unspecified atrial fibrillation (principal); Z79.01 Long term (current) use of anticoagulants | CPT/HCPCS: 85610 ==

== ENCOUNTER 2017-05-12 09:09 | Outpatient (CLI) | payer MEDICARE, BC, OTHER | END 2017-05-12 09:10 | disposition home or self-care (01) | LOC: LAB.F 09:09 | PROVIDERS: ATTEND Internal Medicine | DX: I48.91 Unspecified atrial fibrillation (principal); Z79.01 Long term (current) use of anticoagulants | CPT/HCPCS: 85610 ==

== ENCOUNTER 2017-05-16 15:00 | Outpatient (CLI) | payer MEDICARE, BC, OTHER | END 2017-05-16 15:01 | disposition home or self-care (01) | LOC: LAB.R 15:00 | PROVIDERS: ATTEND Internal Medicine | DX: N30.00 Acute cystitis without hematuria (principal) | CPT/HCPCS: 87086 ==

== ENCOUNTER 2017-06-09 15:10 | Outpatient (CLI) | payer MEDICARE, BC, OTHER | END 2017-06-09 15:11 | disposition home or self-care (01) | LOC: LAB.F 15:10 | PROVIDERS: ATTEND Internal Medicine | DX: I48.91 Unspecified atrial fibrillation (principal); Z79.01 Long term (current) use of anticoagulants | CPT/HCPCS: 85610 ==

== ENCOUNTER 2017-06-13 10:50 | Outpatient (CLI) | payer MEDICARE, BC, OTHER ==
--- NOTE | 2017-06-15 09:42 | Mammography Report ---
RIGHT SCREENING MAMMOGRAM: 06/13/2017. COMPARISON: Mammogram 06/08/2016. INDICATION: Screening. TECHNIQUE: Unilateral right MLO and CC breast views. FINDINGS: There are scattered fibroglandular densities. There are right breast scar markers. No dominant mass, architectural distortion or concerning cluster of microcalcifications are seen. IMPRESSION: 1. BI-RADS CATEGORY 2. BENIGN FINDINGS. 2. RECOMMEND ANNUAL SCREENING MAMMOGRAM. STANDARD QUALIFYING STATEMENTS: 1. This examination was reviewed with the aid of Computer-Aided Detection (CAD) . 2. A negative or benign imaging report should not delay biopsy if clinically suspicious findings are present. Consider surgical consultation if warranted. More than 5 % of cancers are not identified by imaging. 3. Dense breasts may obscure an underlying neoplasm. TD: 06/15/2017 09:41 KYLEE
== END 2017-06-13 10:51 | disposition home or self-care (01) ==
LOC: DI 10:50
PROVIDERS: ATTEND Internal Medicine
DX: Z12.31 Encounter for screening mammogram for malignant neoplasm of breast (principal); Z90.12 Acquired absence of left breast and nipple

== ENCOUNTER 2017-07-07 14:19 | Outpatient (CLI) | payer MEDICARE, BC, OTHER | END 2017-07-07 14:20 | disposition home or self-care (01) | LOC: LAB.F 14:19 | PROVIDERS: ATTEND Internal Medicine | DX: I48.91 Unspecified atrial fibrillation (principal); Z79.01 Long term (current) use of anticoagulants | CPT/HCPCS: 85610 ==

== ENCOUNTER 2017-08-04 10:53 | Outpatient (CLI) | payer MEDICARE, BC, OTHER ==
--- NOTE | 2017-08-04 12:56 | XRAY Report ---
TWO VIEW CHEST: 08/04/2017 CLINICAL INDICATION: Wheezing. COMPARISON: 10/01/2015. FINDINGS: Frontal and lateral views of the chest demonstrate a normal cardiac silhouette. Chronic lung disease is stable. No new consolidation, effusion, or pneumothorax is present. IMPRESSION: STABLE COPD. NO EVIDENCE OF ACUTE CARDIOPULMONARY DISEASE. TD: 08/04/2017 12:55
== END 2017-08-04 10:54 | disposition home or self-care (01) ==
LOC: DI 10:53
PROVIDERS: ATTEND Physician Assistant Medical
DX: J06.9 Acute upper respiratory infection, unspecified (principal); J44.9 Chronic obstructive pulmonary disease, unspecified; I48.91 Unspecified atrial fibrillation; Z79.01 Long term (current) use of anticoagulants
CPT/HCPCS: 71046; 85610

== ENCOUNTER 2017-08-04 15:25 | Outpatient (CLI) | payer MEDICARE, BC, OTHER | END 2017-08-04 15:26 | disposition home or self-care (01) | LOC: LAB.F 15:25 | PROVIDERS: ATTEND Internal Medicine | DX: I48.91 Unspecified atrial fibrillation (principal); Z79.01 Long term (current) use of anticoagulants | CPT/HCPCS: 85610 ==

== ENCOUNTER 2017-08-18 15:08 | Outpatient (CLI) | payer MEDICARE, BC, OTHER | END 2017-08-18 15:09 | disposition home or self-care (01) | LOC: LAB.F 15:08 | PROVIDERS: ATTEND Internal Medicine | DX: I48.91 Unspecified atrial fibrillation (principal); Z79.01 Long term (current) use of anticoagulants | CPT/HCPCS: 85610 ==

== ENCOUNTER 2017-09-15 14:38 | Outpatient (CLI) | payer MEDICARE, BC, OTHER | END 2017-09-15 14:39 | disposition home or self-care (01) | LOC: LAB.F 14:38 | PROVIDERS: ATTEND Internal Medicine | DX: I48.91 Unspecified atrial fibrillation (principal); Z79.01 Long term (current) use of anticoagulants | CPT/HCPCS: 85610 ==

== ENCOUNTER 2017-09-16 07:36 | Outpatient (CLI) | payer MEDICARE, BC, OTHER ==
[2017-09-16 11:41] LABS: BASOPHILS % (AUTO) 1.1 %; EOSINOPHILS # (AUTO) 0.1 10^3/uL (0.0-0.7); EOSINOPHILS % (AUTO) 1.6 %; HGB - HEMOGLOBIN 13.7 g/dL (12.0-16.0); LYMPHOCYTES # (AUTO) 1.3 10^3/uL (1.5-3.5); LYMPHOCYTES % (AUTO) 33.1 %; MEAN CORPUSCULAR HEMOGLOBIN 31.1 pg (27.0-31.0); MEAN CORPUSCULAR VOLUME 94.1 fL (81.0-99.0); MEAN PLATELET VOLUME 11.9 fL (7.9-10.8); MONOCYTES # (AUTO) 0.4 10^3/uL (0.0-1.0); NEUTROPHILS # (AUTO) 2.2 10^3/uL (1.5-6.6); NEUTROPHILS % (AUTO) 55.2 %; PLT - PLATELET COUNT 177 10^3/uL (130-450); RED BLOOD COUNT 4.41 10^6/uL (4.20-5.40); RED CELL DISTRIBUTION WIDTH 14.4 % (12.0-15.0)
[2017-09-16 11:42] LABS: PLATELET MORPHOLOGY RARE GIANT PLATELETS (NORMAL)
[2017-09-16 11:45] LABS: ALBUMIN 3.7 g/dL (3.2-5.5); ALBUMIN/GLOBULIN RATIO 1.2 (1.0-2.2); ALKALINE PHOSPHATASE 57 IU/L (42-121); ALT ALANINE AMINOTRANSFERASE 18 IU/L (10-60); AST ASPARTATE AMINOTRANSFERASE 24 IU/L (10-42); BILIRUBIN,TOTAL 1.2 mg/dL (0.2-1.0); BUN - BLOOD UREA NITROGEN 23 mg/dL (6-20); CALCIUM 8.5 mg/dL (8.5-10.3); CARBON DIOXIDE - CO2 27 mmol/L (21-32); CHLORIDE 107 mmol/L (101-111); CHOL/HDL RATIO 2.6 (<4.4); CHOLESTEROL 149 mg/dL; CREATININE 0.8 mg/dL (0.4-1.0); GFR - MDRD 68 (>89); GLUCOSE 99 mg/dL (70-100); HDL CHOLESTEROL 58 mg/dL; LDL CHOLESTEROL,CALCULATED 78 mg/dL; LDL/HDL RATIO 1.3 (<4.4); SODIUM 139 mmol/L (135-145); TOTAL PROTEIN 6.9 g/dL (6.7-8.2); VLDL CHOLESTEROL 13 mg/dL
== END 2017-09-16 07:37 | disposition home or self-care (01) ==
LOC: LAB.F 07:36
PROVIDERS: ATTEND Internal Medicine
DX: Z79.01 Long term (current) use of anticoagulants (principal); Z79.899 Other long term (current) drug therapy; C50.919 Malignant neoplasm of unspecified site of unspecified female breast; I10 Essential (primary) hypertension; I48.91 Unspecified atrial fibrillation
CPT/HCPCS: 36415; 80053; 80061; 83721; 85025

== ENCOUNTER 2017-10-10 13:06 | Outpatient (CLI) | payer MEDICARE, BC, OTHER ==
--- NOTE | 2017-10-10 15:48 | DEXA Report ---
Procedure Date: 10/10/2017 Accession Number: [id number] / [id number] Procedure: DEX - Dexa Spine and/or Hip CPT Code: FULL RESULT: EXAM: Dexa Spine and/or Hip DATE: 10/10/2017 1:39 PM CLINICAL HISTORY: IDIOPATHIC OSTEOPOROSIS TECHNIQUE: Dual energy x-ray absorptiometry (DXA) was performed on a [employer] System. Regions measured are the AP Spine, femoral neck, and if needed forearm. COMPARISON: None. In accordance with the International Society for Clinical Densitometry (ISCD) guidelines, data from previous exams may be reanalyzed using current recommendations and techniques. This is done to allow a more accurate basis for comparison with the current study. FINDINGS: The data for the lumbar spine is as follows: BMD (g/cm/cm) T-SCORE Z-SCORE REGION L1 0.906 -1.9 0.0 L2 0.905 -2.5 -0.5 L3 0.988 -1.8 0.1 L4 1.181 -0.2 1.8 TOTAL 1.011 -1.4 0.5 NOTE: All evaluable vertebrae are used for classification The data for the hip is as follows: BMD (g/cm/cm) T-SCORE Z-SCORE REGION Neck 0.745 -2.1 0.2 TOTAL 0.792 -1.7 0.5 NOTE: The femoral neck or total proximal femur, whichever is lowest, is used for classification. IMPRESSION: THE WHO CLASSIFICATION BASED ON THE INTERNATIONAL REFERENCE STANDARD IS OSTEOPENIA. THE FRACTURE RISK IS INCREASED. RECOMMENDATION: Patients with diagnosis of osteoporosis or osteopenia should have regular bone mineral density assessment. For those eligible for Medicare, routine testing is allowed once every 2 years. Testing frequency can be increased for patients who have rapidly progressing disease or for those who are receiving medical therapy to restore bone mass. COMMENT: World Health Organization (WHO) definitions for osteoporosis and osteopenia: NORMAL BMD: T-score at -1.0 or higher, fracture risk is low OSTEOPENIA BMD: T-score between -1.0 and -2.5, fracture risk is increased. OSTEOPOROSIS BMD: T-score at -2.5 or lower, fracture risk is high. National Osteoporosis Foundation recommends: 1. Obtain adequate dietary calcium (at least 1200 mg per day) and vitamin D (400-800 international units per day). 2. Participate, as appropriate, in regular weightbearing and muscle-strengthening exercise. 3. Avoid tobacco use and reduce alcohol and caffeine intake. 4. For more detailed information see the website at www.NOF.org.
== END 2017-10-10 13:07 | disposition home or self-care (01) ==
LOC: DI 13:06
PROVIDERS: ATTEND Internal Medicine
DX: M81.0 Age-related osteoporosis without current pathological fracture (principal); Z78.0 Asymptomatic menopausal state
CPT/HCPCS: 77080

== ENCOUNTER 2017-10-13 14:03 | Outpatient (CLI) | payer MEDICARE, BC, OTHER | END 2017-10-13 14:04 | disposition home or self-care (01) | LOC: LAB.F 14:03 | PROVIDERS: ATTEND Internal Medicine | DX: I48.91 Unspecified atrial fibrillation (principal); Z79.01 Long term (current) use of anticoagulants | CPT/HCPCS: 85610 ==

== ENCOUNTER 2017-10-31 14:17 | Outpatient (CLI) | payer MEDICARE, BC, OTHER | END 2017-10-31 14:18 | disposition home or self-care (01) | LOC: LAB.F 14:17 | PROVIDERS: ATTEND Internal Medicine | DX: I48.91 Unspecified atrial fibrillation (principal); Z79.01 Long term (current) use of anticoagulants | CPT/HCPCS: 85610 ==

== ENCOUNTER 2017-11-17 14:43 | Outpatient (CLI) | payer MEDICARE, BC, OTHER | END 2017-11-17 14:44 | disposition home or self-care (01) | LOC: LAB.F 14:43 | PROVIDERS: ATTEND Internal Medicine | DX: I48.91 Unspecified atrial fibrillation (principal); Z79.01 Long term (current) use of anticoagulants | CPT/HCPCS: 85610 ==

== ENCOUNTER 2017-11-28 13:01 | Outpatient (CLI) | payer MEDICARE, BC, OTHER | END 2017-11-28 13:02 | disposition home or self-care (01) | LOC: LAB.F 13:01 | PROVIDERS: ATTEND Internal Medicine | DX: I48.91 Unspecified atrial fibrillation (principal); Z79.01 Long term (current) use of anticoagulants | CPT/HCPCS: 85610 ==

== ENCOUNTER 2018-01-23 08:00 | Outpatient (CLI) | payer MEDICARE, BC, OTHER ==
[2018-01-23 15:44] LABS: ALBUMIN/GLOBULIN RATIO 1.1 (1.0-2.2); BILIRUBIN,TOTAL 0.7 mg/dL (0.2-1.0); CREATININE 0.9 mg/dL (0.4-1.0); TOTAL PROTEIN 7.6 g/dL (6.7-8.2)
[2018-01-23 15:58] LABS: BASOPHILS % (AUTO) 0.8 %; EOSINOPHILS % (AUTO) 0.8 %; HGB - HEMOGLOBIN 14.9 g/dL (12.0-16.0); LYMPHOCYTES # (AUTO) 1.3 10^3/uL (1.5-3.5); LYMPHOCYTES % (AUTO) 24.8 %; MEAN CORPUSCULAR HEMOGLOBIN 31.1 pg (27.0-31.0); MEAN CORPUSCULAR HGB CONC 33.6 g/dL (32.0-36.0); MEAN CORPUSCULAR VOLUME 92.4 fL (81.0-99.0); MEAN PLATELET VOLUME 11.6 fL (7.9-10.8); MONOCYTES # (AUTO) 0.5 10^3/uL (0.0-1.0); MONOCYTES % (AUTO) 8.5 %; NEUTROPHILS # (AUTO) 3.5 10^3/uL (1.5-6.6); NEUTROPHILS % (AUTO) 65.1 %; PLT - PLATELET COUNT 198 10^3/uL (130-450); RED CELL DISTRIBUTION WIDTH 13.6 % (12.0-15.0); WHITE BLOOD COUNT 5.3 x10^3/uL (4.8-10.8)
[2018-01-23 16:31] LABS: PLATELET ESTIMATE, MANUAL NORMAL (130-450,000) (NORMAL); PLATELET MORPHOLOGY 3+ GIANT PLATELETS (NORMAL); RBC MORPHOLOGY (MULTIPLE) NORMAL APPEARANCE (NORMAL)
== END 2018-01-23 08:01 | disposition home or self-care (01) ==
LOC: LAB.R 08:00
PROVIDERS: ATTEND Nurse Practitioner Primary Care
DX: R10.13 Epigastric pain (principal); Z79.899 Other long term (current) drug therapy; Z79.01 Long term (current) use of anticoagulants
CPT/HCPCS: 80053; 83690; 85025

== ENCOUNTER 2018-06-26 10:18 | Emergency (ER) | payer MEDICARE, BC, OTHER ==
[2018-06-26 11:09] LABS: BILIRUBIN,URINE NEGATIVE (NEGATIVE); GLUCOSE, URINE (UA) NEGATIVE (NEGATIVE); KETONES,URINE (UA) NEGATIVE (NEGATIVE); LEUKOCYTE ESTERASE, URINE MODERATE (NEGATIVE); NITRITE,URINE POSITIVE (NEGATIVE); OCCULT BLOOD,URINE LARGE (NEGATIVE); PH,URINE 6.5 PH (5.0-7.5); PROTEIN,URINE NEGATIVE (NEGATIVE); UROBILINOGEN,URINE 0.2 (NORMAL) E.U./dL (NORMAL)
[2018-06-26 11:13] LABS: CLARITY,URINE CLEAR (CLEAR)
[2018-06-26 11:25] LABS: BACTERIA,URINE Rare /HPF (None Seen); RBC,URINE 0-5 /HPF (0-5); SQUAMOUS EPITHELIAL CELL,UR NONE SEEN (<= Few)
[2018-06-26 13:08] VITALS: BP 166/94
--- NOTE | 2018-06-26 13:51 | ED Physician Documentation ---
PD HPI FEMALE - Stated complaint Stated Complaint: FEMALE - Chief complaint Chief Complaint: UTI - History obtained from History obtained from: Patient, Family - History of Present Illness Timing - onset: How many days ago (10) Timing - duration: Days (10) Timing - details: Gradual onset, Still present Associated symptoms: Pelvic pain, Dysuria, Urinary frequency Similar symptoms before: Diagnosis (UTI) Recently seen: Clinic - Additional information Additional information: 82-year-old female is begin to have symptoms of urinary frequency and urgency and she is developed some pain as well. She has been into see the doctor and urinalysis at the time was unremarkable and she was placed on some Premarin for presumed hormonal related cystitis. She has had persistence of her symptoms and last night her symptoms really peaked she had severe pain and she states that she would have crawled into the emergency department last night. Today she is somewhat more comfortable but continues to have symptoms. Review of Systems Constitutional: reports: Chills. denies: Fever Eyes: denies: Decreased vision Ears: denies: Ear pain Nose: denies: Congestion Throat: denies: Sore throat Cardiac: denies: Chest pain / pressure, Palpitations Respiratory: denies: Dyspnea, Cough GI: reports: Nausea. denies: Abdominal Pain, Vomiting, Constipation, Diarrhea : reports: Frequency. denies: Dysuria Skin: denies: Rash Musculoskeletal: reports: Back pain. 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 : Incontinence HEENT: Chronic vision loss Psych: Depression, Anxiety Musculoskeletal: Osteoporosis Derm: None - Past Surgical History Past Surgical History: Yes General: Cholecystectomy, Colonoscopy /FLOOR HELPER: Mastectomy - Present Medications Home Medications: Ambulatory Orders Medication Instructions Recorded Confirmed Calcium Carbonate [Calcium] 1,200 mg PO DAILY 05/26/13 04/20/17 Cholecalciferol (Vitamin D3) 1,000 unit PO DAILY 05/26/13 04/20/17 [Vitamin D3] Clopidogrel [Plavix] 75 mg PO DAILY 05/26/13 04/20/17 LORazepam [Ativan] 0.25 - 0.5 mg PO DAILY PRN 05/26/13 04/20/17 Losartan [Cozaar] 50 mg PO BID 05/26/13 04/20/17 Metoprolol Tartrate 75 mg PO BID 05/26/13 04/20/17 Pantoprazole Sodium [Protonix] 40 mg PO QDAC 05/26/13 04/20/17 Atorvastatin [Lipitor] 10 mg PO QPM 08/27/15 04/20/17 Warfarin [Coumadin] 5 mg PO MOFR@1400 08/27/15 04/20/17 Amlodipine Besylate [Norvasc] 2.5 mg PO QPM 04/20/17 04/20/17 Betaxolol 0.25% Ophth Drops 1 drops EACHEYE BID 04/20/17 04/20/17 [Betoptic S 0.25% Ophth Drops] Ferrous Gluconate [Fergon] 270 mg PO DAILY 04/20/17 04/20/17 Furosemide 5 mg PO DAILY 04/20/17 04/20/17 Sucralfate [Carafate] 1 gm PO ACHS 04/20/17 04/20/17 Warfarin [Coumadin] 2.5 mg PO SUTUWETHSA@1400 04/20/17 04/20/17 Enoxaparin [Lovenox] 60 mg SQ BID 4 Days #8 syringe 04/21/17 Sulfamethoxazole/Trimethoprim 1 each PO BID #14 tablet 06/26/18 [Sulfamethoxazole-Tmp Ds Tablet] - Allergies Allergies/Adverse Reactions: Allergies Allergy/AdvReac Type Severity Reaction Status Date / Time adhesive Allergy Mild Rash Verified 06/26/18 13:50 amoxicillin [Amoxicillin] Allergy Unknown Unknown Verified 06/26/18 13:50 clindamycin Allergy Unknown Verified 06/26/18 13:50 codeine Allergy Unknown Verified 06/26/18 13:50 tetracycline Allergy Unknown Verified 06/26/18 13:50 - Social History Does the pt smoke?: No Smoking Status: Never smoker Does the pt drink ETOH?: No Does the pt have substance abuse?: No - Immunizations Immunizations are current?: Yes - POLST Patient has POLST: No POLST Status: DNR (Ok to shock or give meds, NO compressions, NO intubation.) PD ED PE NORMAL - Vitals Vital signs reviewed: Yes (hypertension) - General General: Alert and oriented X 3, No acute distress, Well developed/nourished - HEENT HEENT: Atraumatic, PERRL, EOMI - Respiratory Respiratory: No respiratory distress - Back Back: No CVA TTP, No spinal TTP - Derm Derm: Normal color, Warm and dry, No rash - Extremities Extremities: No deformity, No edema - Neuro Neuro: Alert and oriented X 3, 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, No motor deficit, No sensory deficit, Normal speech Eye Opening: Spontaneous Motor: Obeys Commands Verbal: Oriented GCS Score: 15 - Psych Psych: Normal mood, Normal affect Results - Vitals Vitals: Vital Signs - 24 hr 06/26/18 06/26/18 06/26/18 10:52 13:07 13:08 Temperature 36.9 C 36.5 C Heart Rate 73 86 Respiratory 20 18 Rate Blood Pressure 147/73 H 166/94 H O2 Saturation 95 96 Oxygen O2 Source Room air - Labs Labs: Laboratory Tests 06/26/18 10:30 Urine Color YELLOW Urine Clarity CLEAR Urine pH 6.5 Ur Specific [place] <=1.005 Urine Protein NEGATIVE Urine Glucose (UA) NEGATIVE Urine Ketones NEGATIVE Urine Occult Blood LARGE H Urine Nitrite POSITIVE H Urine Bilirubin NEGATIVE Urine Urobilinogen 0.2 (NORMAL) Ur Leukocyte Esterase MODERATE H Urine RBC 0-5 Urine WBC 11-25 H Ur Squamous Epith Cells NONE SEEN Urine Bacteria Rare Ur Microscopic Review INDICATED Urine Culture Comments INDICATED PD MEDICAL DECISION MAKING - ED course Complexity details: considered differential, d/w patient, d/w family ED course: 82-year-old female with urinary symptoms has evidence of pyuria and bacteriuria on microscopic examination of the urine today. Her urine does make grade for culture. Her past urine was a sensitive E. coli. We will place her on some . Departure - Departure Disposition: 01 Home, Self Care Clinical Impression: Urinary tract infection Qualifiers: Urinary tract infection type: acute cystitis Hematuria presence: without hematuria Qualified Code(s): N30.00 - Acute cystitis without hematuria Condition: Stable Instructions: ED UTI Cystitis Female Follow-Up: Douglas Pond MD [Primary Care Provider] - Prescriptions: Sulfamethoxazole/Trimethoprim [Sulfamethoxazole-Tmp Ds Tablet] 1 each PO BID #14 tablet Comments: Because you are on Coumadin and we have placed you on an antibiotic he will need to have your INR rechecked in about 3 days.
== END 2018-06-26 14:04 | disposition home or self-care (01) ==
LOC: ED 10:18
DX: N30.00 Acute cystitis without hematuria (principal); R82.71 Bacteriuria; I10 Essential (primary) hypertension
CPT/HCPCS: 81001; 81003; 85610; 87086; 87181; 99283

== ENCOUNTER 2018-07-07 11:16 | Outpatient (CLI) | payer MEDICARE, BC, OTHER ==
[2018-07-07 11:28] LABS: BILIRUBIN,URINE NEGATIVE (NEGATIVE); GLUCOSE, URINE (UA) NEGATIVE (NEGATIVE); KETONES,URINE (UA) NEGATIVE (NEGATIVE); LEUKOCYTE ESTERASE, URINE NEGATIVE (NEGATIVE); NITRITE,URINE NEGATIVE (NEGATIVE); OCCULT BLOOD,URINE TRACE-INTA (NEGATIVE); PH,URINE 5.5 PH (5.0-7.5); PROTEIN,URINE NEGATIVE (NEGATIVE); UROBILINOGEN,URINE 0.2 (NORMAL) E.U./dL (NORMAL)
[2018-07-07 11:29] LABS: CLARITY,URINE CLEAR (CLEAR)
== END 2018-07-07 11:17 | disposition home or self-care (01) ==
LOC: LAB 11:16
PROVIDERS: ATTEND Family Medicine
DX: N95.2 Postmenopausal atrophic vaginitis (principal); R32 Unspecified urinary incontinence
CPT/HCPCS: 81001; 81003; 87086

== ENCOUNTER 2018-09-27 07:37 | Outpatient (CLI) | payer MEDICARE, BC, OTHER ==
[2018-09-27 11:37] LABS: EOSINOPHILS # (AUTO) 0.1 10^3/uL (0.0-0.7); EOSINOPHILS % (AUTO) 2.5 %; HGB - HEMOGLOBIN 14.2 g/dL (12.0-16.0); LYMPHOCYTES # (AUTO) 1.3 10^3/uL (1.5-3.5); LYMPHOCYTES % (AUTO) 30.9 %; MEAN CORPUSCULAR HEMOGLOBIN 30.3 pg (27.0-31.0); MEAN CORPUSCULAR HGB CONC 31.6 g/dL (32.0-36.0); MEAN CORPUSCULAR VOLUME 96.2 fL (81.0-99.0); MEAN PLATELET VOLUME 12.8 fL (7.9-10.8); MONOCYTES # (AUTO) 0.4 10^3/uL (0.0-1.0); MONOCYTES % (AUTO) 8.7 %; NEUTROPHILS # (AUTO) 2.3 10^3/uL (1.5-6.6); NEUTROPHILS % (AUTO) 56.9 %; PLT - PLATELET COUNT 200 10^3/uL (130-450); RED BLOOD COUNT 4.68 10^6/uL (4.20-5.40); RED CELL DISTRIBUTION WIDTH 13.2 % (12.0-15.0)
[2018-09-27 11:52] LABS: ALBUMIN 3.9 g/dL (3.2-5.5); ALBUMIN/GLOBULIN RATIO 1.2 (1.0-2.2); ALKALINE PHOSPHATASE 65 IU/L (42-121); ALT ALANINE AMINOTRANSFERASE 19 IU/L (10-60); AST ASPARTATE AMINOTRANSFERASE 23 IU/L (10-42); BILIRUBIN,TOTAL 1.1 mg/dL (0.2-1.0); BUN - BLOOD UREA NITROGEN 22 mg/dL (6-20); CALCIUM 8.7 mg/dL (8.5-10.3); CARBON DIOXIDE - CO2 30 mmol/L (21-32); CHLORIDE 100 mmol/L (101-111); CHOL/HDL RATIO 3.3 (<4.4); CHOLESTEROL 191 mg/dL; CREATININE 0.8 mg/dL (0.4-1.0); GFR - MDRD 68 (>89); GLUCOSE 99 mg/dL (70-100); HDL CHOLESTEROL 58 mg/dL; LDL CHOLESTEROL,CALCULATED 113 mg/dL; LDL/HDL RATIO 1.9 (<4.4); SODIUM 139 mmol/L (135-145); TOTAL PROTEIN 7.2 g/dL (6.7-8.2); VLDL CHOLESTEROL 20 mg/dL
== END 2018-09-27 07:38 | disposition home or self-care (01) ==
LOC: LAB.F 07:37
PROVIDERS: ATTEND Nurse Practitioner
DX: K21.9 Gastro-esophageal reflux disease without esophagitis (principal); I48.91 Unspecified atrial fibrillation; D50.9 Iron deficiency anemia, unspecified; Z79.899 Other long term (current) drug therapy
CPT/HCPCS: 36415; 80053; 80061; 83721; 84443; 85025

== ENCOUNTER 2019-03-02 10:17 | Outpatient (CLI) | payer MEDICARE, BC, OTHER ==
--- NOTE | 2019-03-02 13:49 | XRAY Report ---
Reason: GERD,HYPERTENSION,AFIB,DYSPNEA Procedure Date: 03/02/2019 Accession Number: [id number] / [id number] Procedure: XR - Chest 2 View X-Ray CPT Code: 37369 Final Report FULL RESULT: EXAM: CHEST RADIOGRAPHY, 2 VIEWS EXAM DATE: 03/02/2019 10:30 AM. CLINICAL HISTORY: GERD, hypertension, AFIB and dyspnea in an 83-year-old female. COMPARISON: CHEST 2 VIEW 08/04/2017 11:10 AM. CHEST 2 VIEW PA/LAT 10/01/2015 11:33 AM. TECHNIQUE: Upright PA and lateral views. FINDINGS: Lungs/Pleura: No focal opacities evident. No pleural effusion. No pneumothorax. Normal volumes. Patchy nodular areas right upper lobe, stable, likely scarring. Mediastinum: Heart size normal, without adenopathy or pulmonary vascular congestion. Other: Trachea is midline. Osseous structures unremarkable for age. Previous left breast surgical removal with surgical clips in the left axilla, as previously. IMPRESSION: Stable chest. No pneumonia, CHF or other demonstrated cause for the patient's symptoms. RADIA
== END 2019-03-02 10:18 | disposition home or self-care (01) ==
LOC: DI 10:17
PROVIDERS: ATTEND Family Medicine
DX: I48.91 Unspecified atrial fibrillation (principal); K21.9 Gastro-esophageal reflux disease without esophagitis; F33.2 Major depressive disorder, recurrent severe without psychotic features; R06.00 Dyspnea, unspecified; I34.0 Nonrheumatic mitral (valve) insufficiency; I11.9 Hypertensive heart disease without heart failure; G25.0 Essential tremor
CPT/HCPCS: 36415; 71046; 80053; 83880; 84439; 84443; 84481; 85025; 93306

== ENCOUNTER 2019-03-02 11:16 | Outpatient (CLI) | payer MEDICARE, BC, OTHER ==
[2019-03-02 11:37] LABS: BASOPHILS % (AUTO) 0.5 %; EOSINOPHILS % (AUTO) 0.7 %; HGB - HEMOGLOBIN 14.5 g/dL (12.0-16.0); LYMPHOCYTES # (AUTO) 1.3 10^3/uL (1.5-3.5); LYMPHOCYTES % (AUTO) 20.9 %; MEAN CORPUSCULAR HEMOGLOBIN 30.5 pg (27.0-31.0); MEAN CORPUSCULAR HGB CONC 31.9 g/dL (32.0-36.0); MEAN CORPUSCULAR VOLUME 95.4 fL (81.0-99.0); MEAN PLATELET VOLUME 12.7 fL (7.9-10.8); MONOCYTES # (AUTO) 0.5 10^3/uL (0.0-1.0); MONOCYTES % (AUTO) 8.4 %; NEUTROPHILS # (AUTO) 4.2 10^3/uL (1.5-6.6); PLT - PLATELET COUNT 200 10^3/uL (130-450); RED BLOOD COUNT 4.76 10^6/uL (4.20-5.40); RED CELL DISTRIBUTION WIDTH 13.4 % (12.0-15.0); WHITE BLOOD COUNT 6.1 x10^3/uL (4.8-10.8)
[2019-03-02 11:49] LABS: ALBUMIN 4.3 g/dL (3.2-5.5); ALBUMIN/GLOBULIN RATIO 1.2 (1.0-2.2); BILIRUBIN,TOTAL 1.1 mg/dL (0.2-1.0); CALCIUM 8.8 mg/dL (8.5-10.3); CREATININE 0.7 mg/dL (0.4-1.0); TOTAL PROTEIN 7.8 g/dL (6.7-8.2)
[2019-03-02 12:30] LABS: THYROID STIMULATING HORMONE 1.5 uIU/mL (0.34-5.60)
[2019-03-02 12:34] LABS: FREE T4 (FREE THYROXINE) 1.06 ng/dL (0.58-1.64)
== END 2019-03-02 11:17 | disposition home or self-care (01) ==
LOC: LAB 11:16
PROVIDERS: ATTEND Family Medicine
DX: I10 Essential (primary) hypertension (principal); K21.9 Gastro-esophageal reflux disease without esophagitis; I48.91 Unspecified atrial fibrillation; F33.2 Major depressive disorder, recurrent severe without psychotic features; R06.09 Other forms of dyspnea; G25.0 Essential tremor
CPT/HCPCS: 36415; 80053; 83880; 84439; 84443; 84481; 85025

== ENCOUNTER 2019-09-17 14:11 | Outpatient (CLI) | payer MEDICARE, OTHER ==
[2019-09-17 18:34] LABS: CALCIUM 8.7 mg/dL (8.5-10.3); CREATININE 0.7 mg/dL (0.4-1.0)
[2019-09-17 18:38] LABS: BASOPHILS # (AUTO) 0.1 10^3/uL (0.0-0.1); BASOPHILS % (AUTO) 0.9 %; EOSINOPHILS # (AUTO) 0.1 10^3/uL (0.0-0.7); EOSINOPHILS % (AUTO) 1.2 %; HGB - HEMOGLOBIN 13.9 g/dL (12.0-16.0); LYMPHOCYTES # (AUTO) 1.6 10^3/uL (1.5-3.5); LYMPHOCYTES % (AUTO) 28.6 %; MEAN CORPUSCULAR HEMOGLOBIN 30.2 pg (27.0-31.0); MEAN CORPUSCULAR HGB CONC 31.3 g/dL (32.0-36.0); MEAN CORPUSCULAR VOLUME 96.3 fL (81.0-99.0); MONOCYTES # (AUTO) 0.5 10^3/uL (0.0-1.0); MONOCYTES % (AUTO) 8.1 %; NEUTROPHILS # (AUTO) 3.5 10^3/uL (1.5-6.6); NEUTROPHILS % (AUTO) 60.8 %; PLT - PLATELET COUNT 201 10^3/uL (130-450); RED BLOOD COUNT 4.61 10^6/uL (4.20-5.40); RED CELL DISTRIBUTION WIDTH 13.1 % (12.0-15.0); WHITE BLOOD COUNT 5.7 x10^3/uL (4.8-10.8)
== END 2019-09-17 23:59 | disposition home or self-care (01) ==
LOC: LAB.WCP 14:11
PROVIDERS: ATTEND Family Medicine
DX: I10 Essential (primary) hypertension (principal); I27.81 Cor pulmonale (chronic); I48.91 Unspecified atrial fibrillation; K21.9 Gastro-esophageal reflux disease without esophagitis; G25.0 Essential tremor
CPT/HCPCS: 36415; 80048; 85025

== ENCOUNTER 2019-09-26 08:35 | Outpatient (CLI) | payer MEDICARE, OTHER | END 2019-09-26 08:36 | disposition home or self-care (01) | LOC: LAB 08:35 | PROVIDERS: ATTEND Family Medicine | DX: Z20.828 Contact with and (suspected) exposure to other viral communicable diseases (principal); Z11.59 Encounter for screening for other viral diseases | CPT/HCPCS: 81599; U0004 ==

== ENCOUNTER 2020-01-10 12:10 | Outpatient (CLI) | payer MEDICARE, OTHER ==
[2020-01-10 19:05] LABS: BASOPHILS # (AUTO) 0.1 10^3/uL (0.0-0.1); EOSINOPHILS % (AUTO) 0.8 %; HGB - HEMOGLOBIN 14.4 g/dL (12.0-16.0); LYMPHOCYTES # (AUTO) 1.1 10^3/uL (1.5-3.5); LYMPHOCYTES % (AUTO) 22.1 %; MEAN CORPUSCULAR HGB CONC 31.6 g/dL (32.0-36.0); MEAN CORPUSCULAR VOLUME 98.1 fL (81.0-99.0); MEAN PLATELET VOLUME 13.4 fL (7.9-10.8); MONOCYTES # (AUTO) 0.4 10^3/uL (0.0-1.0); MONOCYTES % (AUTO) 8.8 %; NEUTROPHILS # (AUTO) 3.3 10^3/uL (1.5-6.6); NEUTROPHILS % (AUTO) 66.9 %; PLT - PLATELET COUNT 192 10^3/uL (130-450); RED BLOOD COUNT 4.65 10^6/uL (4.20-5.40); RED CELL DISTRIBUTION WIDTH 13.5 % (12.0-15.0)
[2020-01-10 19:12] LABS: ALBUMIN 4.2 g/dL (3.2-5.5); ALBUMIN/GLOBULIN RATIO 1.2 (1.0-2.2); BILIRUBIN,TOTAL 1.3 mg/dL (0.2-1.0); CREATININE 0.8 mg/dL (0.4-1.0); TOTAL PROTEIN 7.7 g/dL (6.7-8.2)
== END 2020-01-10 23:59 | disposition home or self-care (01) ==
LOC: LAB.WCP 12:10
PROVIDERS: ATTEND Family Medicine
DX: K62.5 Hemorrhage of anus and rectum (principal); R53.83 Other fatigue; I27.81 Cor pulmonale (chronic); D50.8 Other iron deficiency anemias; R06.2 Wheezing; I48.91 Unspecified atrial fibrillation
CPT/HCPCS: 36415; 80053; 83880; 84443; 85025

== ENCOUNTER 2020-08-28 12:02 | Outpatient (CLI) | payer MEDICARE, OTHER ==
--- NOTE | 2020-08-28 15:56 | MRI Report ---
PROCEDURE: Lumbar Spine W/O INDICATIONS: LUMBAR RADICULOPATHY TECHNIQUE: Noncontrast sagittal T1 spin echo and T2 fast echo, sagittal STIR, axial T1 and T2 fast spin echo thr ough the lumbar spine. In cases with scoliosis, additional coronal T2 fast spin echo may be performe d. COMPARISON: None. FINDINGS: Image quality: Diagnostic. Alignment and Curvature: There is normal bony alignment. Bone Marrow: Marrow is of normal overall signal. No acute vertebral body compression fractures. Spinal Cord: Conus medullaris terminates at the L1 level. Visualized cord demonstrates normal signa l and size. Paraspinous Soft Tissues: No paravertebral masses. T12-L1: Normal in appearance. L1-L2: Mild loss of disc height and disc signal are seen. No significant neural foraminal or ce ntral canal narrowing can be seen. L2-L3: Mild loss of disc height and disc signal are seen. A remote appearing Schmorl's node can b e seen at the inferior endplate of L2. Mild disc bulge is seen. Mild facet hypertrophy is seen. Mild bilateral neural foraminal narrowing is seen. Minimal central canal narrowing is seen. L3-L4: The disc height is well-preserved. There is loss of disc signal seen. There is a remote Schm orl's node at the inferior endplate of L3, as on series 6 and 1 image 6. Mild disc bulge is seen. Mild facet hypertrophy is seen. Mild bilateral neural foraminal narrowing is seen. No significant central canal narrowing is seen. L4-L5: There is at least moderate loss of disc height and disc signal. Mild to moderate disc bulge is seen. Moderate facet hypertrophy is seen. There is mild to moderate right-sided and moderate lef t-sided neuroforaminal narrowing seen. Moderate central canal narrowing is seen. L5-S1: The disc height is well-preserved. There is loss of disc signal seen. Mild disc bulge is se en. Moderate facet hypertrophy is seen. There is moderate left-sided and minimal right-sided neuro foraminal narrowing seen. The central canal is widely patent. 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 Reviewed by: Edwin Haney MD on 08/28/2020 2:55 PM AKLUIS MANUEL Approved by: Edwin Haney MD on 08/28/2020 2:55 PM AKDT Station ID: [id number]
== END 2020-08-28 12:03 | disposition home or self-care (01) ==
LOC: DI 12:02
PROVIDERS: ATTEND Physician Assistant
DX: M47.816 Spondylosis without myelopathy or radiculopathy, lumbar region (principal); M48.061 Spinal stenosis, lumbar region without neurogenic claudication; M51.36 Other intervertebral disc degeneration, lumbar region; M51.46 Schmorl's nodes, lumbar region; M47.817 Spondylosis without myelopathy or radiculopathy, lumbosacral region; M48.07 Spinal stenosis, lumbosacral region; M51.37 Other intervertebral disc degeneration, lumbosacral region

== ENCOUNTER 2020-09-09 08:00 | Outpatient (CLI) | payer MEDICARE, OTHER | END 2020-09-09 23:59 | disposition home or self-care (01) | LOC: LAB.F 08:00 | PROVIDERS: ATTEND Internal Medicine | DX: N39.0 Urinary tract infection, site not specified (principal) | CPT/HCPCS: 81002 ==

== ENCOUNTER 2021-01-22 09:03 | Outpatient (CLI) | payer MEDICARE, OTHER, BC ==
[2021-01-22 15:26] LABS: BASOPHILS # (AUTO) 0.1 10^3/uL (0.0-0.1); BASOPHILS % (AUTO) 0.9 %; EOSINOPHILS # (AUTO) 0.1 10^3/uL (0.0-0.7); EOSINOPHILS % (AUTO) 1.1 %; HCT - HEMATOCRIT 45.7 % (37.0-47.0); HGB - HEMOGLOBIN 14.2 g/dL (12.0-16.0); LYMPHOCYTES # (AUTO) 1.2 10^3/uL (1.5-3.5); LYMPHOCYTES % (AUTO) 22.6 %; MEAN CORPUSCULAR HEMOGLOBIN 30.3 pg (27.0-31.0); MEAN CORPUSCULAR HGB CONC 31.1 g/dL (32.0-36.0); MEAN CORPUSCULAR VOLUME 97.4 fL (81.0-99.0); MEAN PLATELET VOLUME 12.8 fL (7.9-10.8); MONOCYTES # (AUTO) 0.4 10^3/uL (0.0-1.0); MONOCYTES % (AUTO) 7.5 %; NEUTROPHILS # (AUTO) 3.6 10^3/uL (1.5-6.6); NEUTROPHILS % (AUTO) 67.7 %; PLT - PLATELET COUNT 220 10^3/uL (130-450); RED BLOOD COUNT 4.69 10^6/uL (4.20-5.40); RED CELL DISTRIBUTION WIDTH 13.3 % (12.0-15.0); WHITE BLOOD COUNT 5.3 x10^3/uL (4.8-10.8)
[2021-01-22 16:00] LABS: ALBUMIN 4.1 g/dL (3.2-5.5); ALBUMIN/GLOBULIN RATIO 1.2 (1.0-2.2); ALKALINE PHOSPHATASE 70 IU/L (42-121); ALT ALANINE AMINOTRANSFERASE 19 IU/L (10-60); AST ASPARTATE AMINOTRANSFERASE 25 IU/L (10-42); BILIRUBIN,TOTAL 0.9 mg/dL (0.2-1.0); BUN - BLOOD UREA NITROGEN 22 mg/dL (6-20); CALCIUM 8.7 mg/dL (8.5-10.3); CARBON DIOXIDE - CO2 29 mmol/L (21-32); CHLORIDE 100 mmol/L (101-111); CHOL/HDL RATIO 2.3 (<4.4); CHOLESTEROL 143 mg/dL; CREATININE 0.8 mg/dL (0.4-1.0); GFR - MDRD 68 (>89); GLUCOSE 102 mg/dL (70-100); HDL CHOLESTEROL 63 mg/dL; LDL CHOLESTEROL,CALCULATED 70 mg/dL; LDL/HDL RATIO 1.1 (<4.4); SODIUM 138 mmol/L (135-145); TOTAL PROTEIN 7.5 g/dL (6.7-8.2); TRIGLYCERIDES 50 mg/dL; VLDL CHOLESTEROL 10 mg/dL
== END 2021-01-22 09:04 | disposition home or self-care (01) ==
LOC: LAB.S 09:03
PROVIDERS: ATTEND Internal Medicine
DX: I10 Essential (primary) hypertension (principal); E78.5 Hyperlipidemia, unspecified
CPT/HCPCS: 36415; 80053; 80061; 83721; 85025

== ENCOUNTER 2021-06-05 12:31 | Outpatient (CLI) | payer MEDICARE, OTHER, BC ==
[2021-06-05 15:17] LABS: BASOPHILS % (AUTO) 0.7 %; EOSINOPHILS % (AUTO) 0.7 %; HCT - HEMATOCRIT 43.1 % (37.0-47.0); HGB - HEMOGLOBIN 13.7 g/dL (12.0-16.0); LYMPHOCYTES # (AUTO) 1.5 10^3/uL (1.5-3.5); LYMPHOCYTES % (AUTO) 24.8 %; MEAN CORPUSCULAR HGB CONC 31.8 g/dL (32.0-36.0); MEAN CORPUSCULAR VOLUME 94.5 fL (81.0-99.0); MONOCYTES # (AUTO) 0.5 10^3/uL (0.0-1.0); MONOCYTES % (AUTO) 8.3 %; NEUTROPHILS # (AUTO) 3.9 10^3/uL (1.5-6.6); NEUTROPHILS % (AUTO) 65.3 %; PLT - PLATELET COUNT 192 10^3/uL (130-450); RED BLOOD COUNT 4.56 10^6/uL (4.20-5.40); RED CELL DISTRIBUTION WIDTH 13.5 % (12.0-15.0)
[2021-06-05 16:03] LABS: ALBUMIN 3.9 g/dL (3.2-5.5); ALBUMIN/GLOBULIN RATIO 1.1 (1.0-2.2); ALKALINE PHOSPHATASE 68 IU/L (42-121); ALT ALANINE AMINOTRANSFERASE 18 IU/L (10-60); AST ASPARTATE AMINOTRANSFERASE 24 IU/L (10-42); BUN - BLOOD UREA NITROGEN 24 mg/dL (6-20); CARBON DIOXIDE - CO2 26 mmol/L (21-32); CHLORIDE 100 mmol/L (101-111); CHOL/HDL RATIO 2.4 (<4.4); CHOLESTEROL 160 mg/dL; CREATININE 0.7 mg/dL (0.4-1.0); GFR - MDRD 79 (>89); GLUCOSE 107 mg/dL (70-100); HDL CHOLESTEROL 66 mg/dL; LDL CHOLESTEROL,CALCULATED 76 mg/dL; LDL/HDL RATIO 1.2 (<4.4); POTASSIUM 4.2 mmol/L (3.5-5.0); SODIUM 136 mmol/L (135-145); TOTAL PROTEIN 7.3 g/dL (6.7-8.2); TRIGLYCERIDES 91 mg/dL; VLDL CHOLESTEROL 18 mg/dL
== END 2021-06-05 12:32 | disposition home or self-care (01) ==
LOC: LAB.S 12:31
PROVIDERS: ATTEND Internal Medicine
DX: I10 Essential (primary) hypertension (principal); E78.5 Hyperlipidemia, unspecified
CPT/HCPCS: 36415; 80053; 80061; 83721; 85025

== ENCOUNTER 2021-08-05 08:40 | Outpatient (CLI) | payer MEDICARE, OTHER, BC | END 2021-08-05 08:41 | disposition critical access hospital (66) | LOC: EMS 08:40 | DX: M25.561 Pain in right knee (principal); R07.81 Pleurodynia; V03.10XA Pedestrian on foot injured in collision with car, pick-up truck or van in traffic accident, initial encounter; Y92.89 Other specified places as the place of occurrence of the external cause | CPT/HCPCS: A0425; A0429 ==

== ENCOUNTER 2021-08-05 09:00 | Emergency (ER) | payer MEDICARE, OTHER, BC ==
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
[2021-08-05] MEDS ORDERED: LORazepam 0.5 MG TABLET PO STA (09:45)
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
[2021-08-05 10:31] VITALS: BP 167/98
== END 2021-08-05 10:53 | disposition home or self-care (01) ==
LOC: EDUNIT# → ED 09:00
DX: S80.211A Abrasion, right knee, initial encounter (principal); S20.211A Contusion of right front wall of thorax, initial encounter; V03.00XA Pedestrian on foot injured in collision with car, pick-up truck or van in nontraffic accident, initial encounter; I10 Essential (primary) hypertension; I48.91 Unspecified atrial fibrillation; Z79.01 Long term (current) use of anticoagulants
CPT/HCPCS: 71101; 73562; 99284; A9270

== ENCOUNTER 2021-10-01 08:00 | Outpatient (CLI) | payer MEDICARE, OTHER, BC | END 2021-10-01 23:59 | disposition home or self-care (01) | LOC: LAB 08:00 | PROVIDERS: ATTEND Registered Nurse | DX: N30.00 Acute cystitis without hematuria (principal) | CPT/HCPCS: 87077; 87086; 87181 ==

== ENCOUNTER 2022-02-15 11:12 | Outpatient (CLI) | payer MEDICARE, OTHER, BC ==
[2022-02-15 14:27] LABS: BASOPHILS # (AUTO) 0.1 10^3/uL (0.0-0.1); EOSINOPHILS # (AUTO) 0.1 10^3/uL (0.0-0.7); EOSINOPHILS % (AUTO) 1.5 %; HCT - HEMATOCRIT 43.1 % (37.0-47.0); HGB - HEMOGLOBIN 13.6 g/dL (12.0-16.0); LYMPHOCYTES # (AUTO) 1.3 10^3/uL (1.5-3.5); LYMPHOCYTES % (AUTO) 21.2 %; MEAN CORPUSCULAR HEMOGLOBIN 30.5 pg (27.0-31.0); MEAN CORPUSCULAR HGB CONC 31.6 g/dL (32.0-36.0); MEAN CORPUSCULAR VOLUME 96.6 fL (81.0-99.0); MEAN PLATELET VOLUME 13.4 fL (7.9-10.8); MONOCYTES # (AUTO) 0.5 10^3/uL (0.0-1.0); MONOCYTES % (AUTO) 9.1 %; PLT - PLATELET COUNT 209 10^3/uL (130-450); RED BLOOD COUNT 4.46 10^6/uL (4.20-5.40); RED CELL DISTRIBUTION WIDTH 12.9 % (12.0-15.0)
[2022-02-15 15:26] LABS: ALBUMIN/GLOBULIN RATIO 1.2 (1.0-2.2); BILIRUBIN,TOTAL 0.9 mg/dL (0.2-1.0); CALCIUM 8.8 mg/dL (8.5-10.3); CREATININE 0.8 mg/dL (0.4-1.0); POTASSIUM 4.1 mmol/L (3.5-5.0); TOTAL PROTEIN 7.3 g/dL (6.7-8.2)
[2022-02-15 15:43] LABS: THYROID STIMULATING HORMONE 1.16 uIU/mL (0.34-5.60)
[2022-02-15 15:45] LABS: FREE T4 (FREE THYROXINE) 0.91 ng/dL (0.58-1.64)
== END 2022-02-15 11:13 | disposition home or self-care (01) ==
LOC: LAB.S 11:12
PROVIDERS: ATTEND Nurse Practitioner Adult Health
DX: Z79.899 Other long term (current) drug therapy (principal)
CPT/HCPCS: 36415; 80053; 84439; 84443; 85025

== ENCOUNTER 2022-05-31 10:49 | Outpatient (CLI) | payer MEDICARE, OTHER, BC ==
[2022-05-31 14:55] LABS: BASOPHILS % (AUTO) 0.7 %; EOSINOPHILS % (AUTO) 0.7 %; HCT - HEMATOCRIT 46.9 % (37.0-47.0); HGB - HEMOGLOBIN 14.8 g/dL (12.0-16.0); LYMPHOCYTES # (AUTO) 1.3 10^3/uL (1.5-3.5); LYMPHOCYTES % (AUTO) 20.7 %; MEAN CORPUSCULAR HEMOGLOBIN 30.3 pg (27.0-31.0); MEAN CORPUSCULAR HGB CONC 31.6 g/dL (32.0-36.0); MEAN CORPUSCULAR VOLUME 96.1 fL (81.0-99.0); MEAN PLATELET VOLUME 12.7 fL (7.9-10.8); MONOCYTES # (AUTO) 0.7 10^3/uL (0.0-1.0); MONOCYTES % (AUTO) 11.1 %; NEUTROPHILS # (AUTO) 4.1 10^3/uL (1.5-6.6); NEUTROPHILS % (AUTO) 66.6 %; PLT - PLATELET COUNT 209 10^3/uL (130-450); RED BLOOD COUNT 4.88 10^6/uL (4.20-5.40); RED CELL DISTRIBUTION WIDTH 13.2 % (12.0-15.0); WHITE BLOOD COUNT 6.1 x10^3/uL (4.8-10.8)
[2022-05-31 15:08] LABS: ALBUMIN/GLOBULIN RATIO 1.1 (1.0-2.2); BILIRUBIN,TOTAL 0.8 mg/dL (0.2-1.0); CALCIUM 8.9 mg/dL (8.5-10.3); CREATININE 0.7 mg/dL (0.4-1.0); POTASSIUM 4.3 mmol/L (3.5-5.0); TOTAL PROTEIN 7.8 g/dL (6.7-8.2)
== END 2022-05-31 10:50 | disposition home or self-care (01) ==
LOC: LAB.S 10:49
PROVIDERS: ATTEND Nurse Practitioner Adult Health
DX: I10 Essential (primary) hypertension (principal); R53.83 Other fatigue; I48.91 Unspecified atrial fibrillation; D50.9 Iron deficiency anemia, unspecified; Z79.899 Other long term (current) drug therapy
CPT/HCPCS: 36415; 80053; 85025

== ENCOUNTER 2022-11-17 11:32 | Outpatient (CLI) | payer MEDICARE, OTHER ==
[2022-11-17 15:06] LABS: BASOPHILS # (AUTO) 0.1 10^3/uL (0.0-0.1); BASOPHILS % (AUTO) 0.8 %; EOSINOPHILS % (AUTO) 0.6 %; HCT - HEMATOCRIT 41.5 % (37.0-47.0); HGB - HEMOGLOBIN 13.1 g/dL (12.0-16.0); LYMPHOCYTES # (AUTO) 1.4 10^3/uL (1.5-3.5); MEAN CORPUSCULAR HEMOGLOBIN 29.9 pg (27.0-31.0); MEAN CORPUSCULAR HGB CONC 31.6 g/dL (32.0-36.0); MEAN CORPUSCULAR VOLUME 94.7 fL (81.0-99.0); MEAN PLATELET VOLUME 12.9 fL (7.9-10.8); MONOCYTES # (AUTO) 0.7 10^3/uL (0.0-1.0); MONOCYTES % (AUTO) 10.5 %; NEUTROPHILS # (AUTO) 4.2 10^3/uL (1.5-6.6); NEUTROPHILS % (AUTO) 65.8 %; PLT - PLATELET COUNT 203 10^3/uL (130-450); RED BLOOD COUNT 4.38 10^6/uL (4.20-5.40); RED CELL DISTRIBUTION WIDTH 13.2 % (12.0-15.0); WHITE BLOOD COUNT 6.4 x10^3/uL (4.8-10.8)
[2022-11-17 15:12] LABS: ALBUMIN 3.7 g/dL (3.2-5.5); ALBUMIN/GLOBULIN RATIO 1.1 (1.0-2.2); BILIRUBIN,TOTAL 0.8 mg/dL (0.2-1.0); CALCIUM 8.7 mg/dL (8.5-10.3); CREATININE 0.8 mg/dL (0.4-1.0); POTASSIUM 4.3 mmol/L (3.5-5.0); TOTAL PROTEIN 7.2 g/dL (6.7-8.2)
== END 2022-11-17 11:33 | disposition home or self-care (01) ==
LOC: LAB.S 11:32
PROVIDERS: ATTEND Nurse Practitioner Adult Health
DX: I10 Essential (primary) hypertension (principal); K62.5 Hemorrhage of anus and rectum; R53.83 Other fatigue
CPT/HCPCS: 36415; 80053; 85025

== ENCOUNTER 2023-02-15 17:21 | Outpatient (CLI) | payer MEDICARE, OTHER | END 2023-02-15 17:22 | disposition critical access hospital (66) | LOC: EMS 17:21 | DX: H53.8 Other visual disturbances (principal); R51.9 Headache, unspecified; R47.02 Dysphasia; R26.81 Unsteadiness on feet | CPT/HCPCS: A0425; A0429 ==

== ENCOUNTER 2023-02-15 17:46 | Emergency (ER) | payer MEDICARE, OTHER ==
--- NOTE | 2023-02-15 17:54 | ED Physician Documentation ---
History of Present Illness - Stated complaint Stated Complaint: CODE STROKE - Additonal information Additional information: 87-year-old female was brought to the emergency department via EMS under a code stroke protocol. Reportedly at 430 she was sitting and reading a book when she suddenly found herself unable to speak or read. She immediately called 911. She reported at that time she had a small headache and head pressure as well as some blurry vision. When EMS arrived on scene they reported she was still having some minor difficulty speaking but that has improved in route. Her blood glucose was 104. BP 170/100 enroute The patient has a past medical history most significant for atrial fibrillation, anticoagulated on Eliquis. Also reportedly history of previous TIA and DVT. The patient was in rate controlled atrial fibrillation for EMS. Meds: Metoprolol 50 mg twice daily, losartan 50 mg twice daily, Lasix 20 mg once morning, Eliquis 5 mg twice daily. Review of Systems Constitutional: denies: Fever, Chills Nose: reports: Reviewed and negative Throat: reports: Reviewed and negative Cardiac: reports: Reviewed and negative Respiratory: reports: Reviewed and negative GI: reports: Reviewed and negative : reports: Reviewed and negative Neurologic: reports: Focal weakness, Difficulty speaking, Headache. 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 : Incontinence HEENT: Chronic vision loss Psych: Depression, Anxiety Musculoskeletal: Osteoporosis Derm: None - Past Surgical History Past Surgical History: Yes General: Cholecystectomy, Colonoscopy /WAITER/WAITRESS TOURIST CLASS: Mastectomy - Present Medications Home Medications: Ambulatory Orders Medication Instructions Recorded Confirmed Calcium Carbonate [Calcium] 1,200 mg PO DAILY 05/26/13 02/15/23 Cholecalciferol (Vitamin D3) 1,000 unit PO DAILY 05/26/13 02/15/23 [Vitamin D3] LORazepam [Ativan] 0.25 - 0.5 mg PO DAILY PRN 05/26/13 02/15/23 Losartan [Cozaar] 50 mg PO BID 05/26/13 02/15/23 Metoprolol Tartrate 50 mg PO BID 05/26/13 02/15/23 Pantoprazole Sodium [Protonix] 40 mg PO QDAC 05/26/13 02/15/23 Amlodipine Besylate [Norvasc] 2.5 mg PO QPM 04/20/17 02/15/23 Betaxolol 0.25% Ophth Drops 1 drops EACHEYE BID 04/20/17 02/15/23 [Betoptic S 0.25% Ophth Drops] Furosemide 5 mg PO DAILY 04/20/17 02/15/23 Apixaban [Eliquis] 5 mg PO DAILY 02/15/23 02/15/23 Citalopram [CeleXA] 10 mg PO DAILY 02/15/23 02/15/23 - Allergies Allergies/Adverse Reactions: Allergies Allergy/AdvReac Type Severity Reaction Status Date / Time adhesive Allergy Mild Rash Verified 08/05/21 09:35 amoxicillin [Amoxicillin] Allergy Unknown Unknown Verified 08/05/21 09:35 clindamycin Allergy Unknown Verified 08/05/21 09:35 codeine Allergy Unknown Verified 08/05/21 09:35 tetracycline Allergy Unknown Verified 08/05/21 09:35 - Social History Does the pt smoke?: No Smoking Status: Never smoker Does the pt drink ETOH?: No Does the pt have substance abuse?: No - Immunizations Immunizations are current?: Yes - POLST Patient has POLST: No POLST Status: DNR (Ok to shock or give meds, NO compressions, NO intubation.) PD ED PE NORMAL - General General: Alert and oriented X 3, No acute distress, Well developed/nourished - HEENT HEENT: Atraumatic, Moist mucous membranes - Cardiac Cardiac: Strong equal pulses. No: RRR (irregularly irregular) - Respiratory Respiratory: No respiratory distress - Abdomen Abdomen: Normal bowel sounds, Soft - Back Back: No CVA TTP, No spinal TTP - Derm Derm: Normal color, Warm and dry, No rash - Extremities Extremities: No deformity - Neuro Neuro: Alert and oriented X 3, jacquard card cutter 2-12 intact Eye Opening: Spontaneous Motor: Obeys Commands Verbal: Oriented GCS Score: 15 Results - Vitals Vitals: Vital Signs - 24 hr 02/15/23 02/15/23 17:51 18:57 Temperature 36.4 C L Heart Rate 91 82 Respiratory 31 H 31 H Rate Blood Pressure 170/82 H 170/89 H O2 Saturation 96 95 Oxygen O2 Source Room air - EKG (time done) 1813 EKG releavant findings:: EKG personally interpreted by author of this note. Relevant findings are: Rate: Rate (enter#) (86) Rhythm: Atrial fibrillation Runnells: Normal Intervals: No: Prolonged QT Ischemia: Q waves (v2-5) Compare to prior EKG: Unchanged from prior EKG (Q waves are new in V1-3), Changed from prior EKG - Labs Labs: Laboratory Tests 02/15/23 02/15/23 02/15/23 18:22 18:22 18:22 WBC 4.6 L RBC 4.53 Hgb 13.5 Hct 42.1 MCV 92.9 MCH 29.8 MCHC 32.1 RDW 13.5 Plt Count 209 MPV 12.1 H Neut # (Auto) 2.8 Lymph # (Auto) 1.3 L [place] # (Auto) 0.4 Eos # (Auto) 0.1 Baso # (Auto) 0.0 Absolute Nucleated RBC 0.00 Nucleated RBC % 0.0 PT 12.1 INR 1.1 Sodium 136 Potassium 3.8 Chloride 101 Carbon Dioxide 27 Anion Gap 8.0 BUN 21 H Creatinine 0.7 Estimated GFR (MDRD) 79 L Glucose 100 Calcium 8.8 Total Bilirubin 0.5 AST 19 ALT 11 Alkaline Phosphatase 84 Troponin I High Sens 6.3 Total Protein 7.2 Albumin 4.2 Globulin 3.0 Albumin/Globulin Ratio 1.4 Lipase 16 - Rads (name of study) CT head stroke protocol Relevant Findings:: Final report received (No acute intracranial process or bleeding) angio head/neck Relevant Findings:: Final report received (No evidence of acute arterial occlu ana or aneurysm in the brain. No hemodynamically significant stenosis in the carotid or vertebral system. Mild calcification at the right carotid bulb. Right upper lobe lung nodule superimposed on probably chronic lung disease.) PD Medical Decision Making - ED course Complexity details: reviewed results, re-evaluated patient, considered differential, d/w patient ED course: 87-year-old female presents the emergency department under a code stroke evaluation. At 4:30 in the afternoon she was sitting reading a book when she began having difficulty reading and could not speak normally. She summoned 911 then took a dose of lorazepam. Her daughter, Catrina, who is a hospice nurse here at [facility] was on scene shortly. Patient does have a past medical history of TIAs despite Eliquis. She is also with a history of atrial fibrillation. Presentation to the emergency department her strokelike symptoms had fully resolved and her NIHSS was 0. She was sent immediately to the CT scanner under the stroke protocol including angiograms. Subsequently she returned to the emergency department EKG, chest x-ray and routine stroke labs were obtained. The CT of the head showed no acute bleeding infarcts. I then spoke on the phone with telestroke neurologist Dr. Brown at 1815. He agrees that the patient is not a TNK candidate. If the patient wanted to be admitted to the hospital he would recommend echo and MRI in the a.m. Otherwise there could be consideration for changing her DOAC from Eliquis to Xarelto and to consider adding an 81 mg aspirin daily. The patient CBC and electrolytes were without acute worrisome derangement. Subsequently I respoke to the patient and her daughter at the bedside. Since her symptoms have fully resolved she did not want to be admitted to the hospital for an MRI or echo. They would follow with her PCP as an outpatient. They also reported the patient had poorly tolerated Xarelto in the past therefore they would prefer to remain on Eliquis. However they will add an 81 mg aspirin as per neurology Ramesh. At this time the patient is clinically stable and desires to be discharged home. The routine emergent return precautions were discussed for worsening symptoms. Departure - Departure Disposition: 01 Home, Self Care Clinical Impression: TIA (transient ischemic attack), History of atrial fibrillation Condition: Stable Record reviewed to determine appropriate education?: Yes Comments: Millie While you are at home today you developed sudden difficulty speaking and interpreting what you are reading. These are strokelike symptoms. By the time you arrived to the emergency department the symptoms had fully resolved. This is called a transient ischemic attack also known as a mini stroke. You do have risk factors for strokes and TIAs that include atrial fibrillation. You should remain on the Eliquis. However after consultation with a stroke neurologist he would make the recommendation to add an 81 mg aspirin daily. I would encourage you to discuss this ED visit with your primary care doctor. They may elect to perform an outpatient MRI. If at home that you have a return of similar symptoms, slurred speech, facial droop, sudden weakness in your arms or legs then you should return immediately to the ER. There was an incidental finding made on your CT angiograms today that showed a right upper lobe 9 mm nodule. You have been aware that you have this in the past. I encourage you to also discuss this with your primary doctor to determine if repeat CT imaging of the chest is indicated and follow-up. NIHSS - Time Time: 17:50 - Level of Consciousness Level of consciousness: (0) Alert, Keenly responsive LOC Questions: (0) Answers both Q's correct LOC Commands: (0) Performs both correctly - Gaze Best Gaze: (0) Normal - Visual Visual: (0) No loss - Facial Palsy Facial Palsy: (0) Normal, symmetrical movement - Motor Arms (both separate) Motor Arm (right): (0) No drift Motor Arm (left): (0) No drift - Motor Legs (both separate) Motor Leg (right): (0) No drift Motor Leg (left): (1) Drift - Limb Ataxia Limb Ataxia: (0) Absent - Sensory Sensory: (0) Normal - Best Language Best Language: (0) No aphasia - Dysarthria Dysarthria: (0) Normal - Extinction and Inattention (formally neg Extinction and inattention: (0) No abnormality - Total Score/Results Total Score/Result: 1
--- NOTE | 2023-02-15 18:22 | CT Report ---
PROCEDURE: Head W/O Stroke Protocol INDICATIONS: aphasia, difficlty reading, left leg weakness TECHNIQUE: Noncontrast 4.5 mm thick angled axial sections acquired from the foramen magnum to the vertex, with c oronal reformats. For radiation dose reduction, the following was used: automated exposure control, adjustment of mA and/or kV according to patient size. COMPARISON: None. FINDINGS: Image quality: Excellent. CSF spaces: Basal cisterns are patent. No extra-axial fluid collections. Ventricles are normal in size and shape. Brain: No midline shift. No intracranial masses or hemorrhage. Age-related cerebral cortical atrop hy. Coleman-white matter interface is normal. Skull and face: Calvarium and visualized facial bones are intact, without suspicious lesions. Sinuses: Small fluid level in the left sphenoid sinus. Sinuses and mastoids are otherwise clear. IMPRESSION: 1. No CT evidence of acute intracranial process. 2. Age-related atrophic changes. 3. Findings called to the emergency room providerSamara at 1819 hours. This study fulfills neurological imaging criteria for inclusion or exclusion of acute stroke therapie s based on available published neurological imaging guidelines. Reviewed by: Nichole Culp MD on 02/15/2023 6:21 PM PST Approved by: Nichole Culp MD on 02/15/2023 6:21 PM PST Station ID: [id number]
[2023-02-15 18:27] LABS: BASOPHILS % (AUTO) 0.9 %; EOSINOPHILS # (AUTO) 0.1 10^3/uL (0.0-0.7); EOSINOPHILS % (AUTO) 1.3 %; HCT - HEMATOCRIT 42.1 % (37.0-47.0); HGB - HEMOGLOBIN 13.5 g/dL (12.0-16.0); LYMPHOCYTES # (AUTO) 1.3 10^3/uL (1.5-3.5); LYMPHOCYTES % (AUTO) 27.3 %; MEAN CORPUSCULAR HEMOGLOBIN 29.8 pg (27.0-31.0); MEAN CORPUSCULAR HGB CONC 32.1 g/dL (32.0-36.0); MEAN CORPUSCULAR VOLUME 92.9 fL (81.0-99.0); MEAN PLATELET VOLUME 12.1 fL (7.9-10.8); MONOCYTES # (AUTO) 0.4 10^3/uL (0.0-1.0); MONOCYTES % (AUTO) 9.3 %; NEUTROPHILS # (AUTO) 2.8 10^3/uL (1.5-6.6); PLT - PLATELET COUNT 209 10^3/uL (130-450); RED BLOOD COUNT 4.53 10^6/uL (4.20-5.40); RED CELL DISTRIBUTION WIDTH 13.5 % (12.0-15.0); WHITE BLOOD COUNT 4.6 x10^3/uL (4.8-10.8)
[2023-02-15 18:34] LABS: INR 1.1 (0.8-1.2); PT - PROTHROMBIN TIME 12.1 secs (9.9-12.6)
[2023-02-15 18:42] LABS: ALBUMIN 4.2 g/dL (3.2-5.5); ALBUMIN/GLOBULIN RATIO 1.4 (1.0-2.2); BILIRUBIN,TOTAL 0.5 mg/dL (0.2-1.0); CALCIUM 8.8 mg/dL (8.5-10.3); CREATININE 0.7 mg/dL (0.6-1.3); POTASSIUM 3.8 mmol/L (3.5-4.5); TOTAL PROTEIN 7.2 g/dL (6.4-8.9)
[2023-02-15 18:49] LABS: TROPONIN I HIGH SENSITIVITY 6.3 ng/L (2.3-14.8)
[2023-02-15 19:02] VITALS: BP 170/89; O2SAT 95
--- NOTE | 2023-02-15 19:27 | CT Report ---
PROCEDURE: CT Angio Head/Neck INDICATIONS: stroke like symptoms TECHNIQUE: After the administration of intravenous contrast, 1 mm thick sections acquired from the aortic arch t hrough the [place]. 3-dimensional upkmswr-vitjyfjvz-vzoapyciqg (MIP) and/or volume renderin g reformats were acquired of the central intracranial vasculature and neck separately. For radiation dose reduction, the following was used: automated exposure control, adjustment of mA and/or kV acco rding to patient size. CONTRAST: COMPARISON: None. FINDINGS: Image quality: Diagnostic. HEAD CT: CSF Spaces: Basal cisterns are patent. No extra-axial fluid collections. Ventricles are normal in size and shape. Brain: The brain is within normal limits for age and scanning technique. Skull and face: Calvarium and visualized facial bones appear intact, without suspicious lesions. Sinuses: Visualized sinuses and mastoids are clear. HEAD CT ANGIOGRAPHY: Anterior circulation: Intracranial internal carotid arteries are normal in size and flow. The flow within the paired anterior cerebral arteries is normal and symmetric. The flow within the middle cer ebral arteries is normal and symmetric. The anterior communicating artery is seen. No aneurysms are seen. Posterior circulation: Visualized portions of the vertebral arteries demonstrate normal caliber, and join to form a normal appearing basilar artery. Flow within the posterior cerebral arteries is norm al and symmetric. No aneurysms are seen. NECK CT ANGIOGRAPHY: Carotid system: The great vessels demonstrate a conventional anatomy as they arise from the aortic a rch. The origins of the common carotid arteries appear patent. The common carotid arteries demonstr ate normal caliber and courses. Mild calcific atherosclerosis of the right carotid bifurcation. The l eft demonstrates minimal calcification. The internal carotid arteries demonstrate normal calibers and courses. Posterior circulation: The origins of the vertebral arteries both appear widely patent. The more marie perior extracranial portions of both vertebral arteries also demonstrate normal courses and calibers. They join to form a normal appearing basilar artery. Soft tissues: Visualized neck soft tissues demonstrate no suspicious abnormalities. Upper lungs dem onstrate bronchial wall thickening and mild bronchiectasis. There is a partially imaged anterior righ t upper lobe lung nodule measuring 9 mm in the inferior most aspect of series 2 image 1. Bones: No suspicious bony lesions. Visualized cervical spine appears normally aligned. IMPRESSION: 1. No evidence of acute arterial occlusion or aneurysm in the brain. If there is continued concern fo r infarct, MR imaging is seen as feasible is recommended. 2. No hemodynamically significant stenosis in the carotid or vertebral system. There is mild calcific ation at the right carotid bulb. 3. Right upper lobe lung nodule superimposed on probably chronic lung disease. Further evaluation as an outpatient after resolution of acute illness is recommended. The estimate of stenosis included in the report of the imaging study was calculated using the NASCET method Reviewed by: Nichole Culp MD on 02/15/2023 7:26 PM PST Approved by: Nichole Culp MD on 02/15/2023 7:26 PM PST Station ID: [id number]
--- NOTE | 2023-02-15 19:32 | XRAY Report ---
PROCEDURE: Chest 1 View X-Ray INDICATIONS: Chest Pain TECHNIQUE: One view of the chest was acquired. COMPARISON: 08/05/2021 FINDINGS: Surgical changes and devices: Left axillary surgical clips. Lungs and pleura: Bilateral perihilar interstitial prominence. No dense consolidation, effusion, or pneumothorax. Mediastinum: Mild chronic cardiomegaly. Mild central vascular congestion. Normal aortic contour. Bones and chest wall: No suspicious bony lesions. Overlying soft tissues appear unremarkable. IMPRESSION: 1. Mild central vascular and interstitial congestion suggesting edema, potentially neurogenic or card iogenic. 2. This may be acute on chronic edema. Correlate with BNP. Reviewed by: Nichole Culp MD on 02/15/2023 7:31 PM PST Approved by: Nichole Culp MD on 02/15/2023 7:31 PM PST Station ID: [id number]
[2023-02-15] MEDS ORDERED: iohexoL-300 100 ML VIAL IVP ONE (20:07)
== END 2023-02-15 20:12 | disposition home or self-care (01) ==
LOC: EDUNIT# → ED 17:46
DX: G45.9 Transient cerebral ischemic attack, unspecified (principal); I48.91 Unspecified atrial fibrillation; Z79.01 Long term (current) use of anticoagulants; Z66 Do not resuscitate
CPT/HCPCS: 36415; 70450; 70496; 70498; 71045; 80053; 83690; 84484; 85025; 85610; 93005; 99284; 99285; Q9967